=== PATIENT | male | born 1935 | race Caucasian/White ===

== ENCOUNTER 2017-01-07 08:46 | Day surgery (SDC) | payer MEDICARE, OTHER ==
[~2017-01-07] VITALS: Ht 170.2 cm; Wt 95.6 kg
[2017-01-07] VITALS (8 sets, daily range): BP systolic 112–169; BP diastolic 62–93; PULSE 65–82; RESP 14–17; O2SAT 93–99
--- NOTE | 2017-01-07 07:26 | PCM.HPANE ---
Patient Data Surgeon Admitting Provider: Attending Provider:Lorenzo Barber MD Primary Care Physician:Dominique Alcantar MD Other Provider:Holger Nguyen Anesthesia Reason for Visit Bladder Neck Obstruction Ht/WT & BMI Height (Feet): 5 Height (Inches): 7 Weight (Kilograms): 99.79 Body Mass Index 34.00 Allergies Coded Allergies: No Known Drug Allergies (Verified Allergy, Unknown, 01/04/17) Past Anesthesia History Anesthesia History: Denies:: Anesthesia Reactions, Fam Anesthesia Reaction, Fam Malignant Hypertherm, Malignant Hyperthermia Diabetes History Hx Diabetes?: Yes Type of Diabetes: Type II Glycemic Control: Insulin & Oral Medication MRSA MRSA: No Medications Hypertension Medication: Yes (MICARDIS) Home Meds Incl Beta Samantha: Yes Reported Medications Aspirin 81 Mg Nxcvsi26 Mg PO DAILY Ref 0 01/07/17 Insulin Glargine (Lantus U100 Solostar Insulin Pen)100 Unit/1 Ml Insuln.pen35 Unit SUBQ HS #1 PENINJ Ref 0 01/04/17 Lovastatin 40 Mg Nfypuw52 Mg PO HS #30 TABLET Ref 0 01/04/17 Levothyroxine 50 Mcg Glmywo91 Mcg PO DAILY Ref 0 01/04/17 Telmisartan (Micardis)40 Mg Hqivpv17 Mg PO DAILY 01/04/17 Methenamine Hippurate (Hiprex)1 G Tablet1 G Po Bid 01/04/17 Glipizide 10 Mg Lgpjag73 Mg PO DAILY 30 Days 01/04/17 Metformin (Glucophage)1,000 Mg Tablet1,000 Mg PO BID Ref 0 01/04/17 Discontinued Reported Medications Gemfibrozil 600 Mg Qsnvou270 Mg PO BID #60 TABLET 01/04/17 [Lovestatin] No Conflict Check40 Mg PO HS 01/04/17 Telmisartan-Expunged Drug, Do Not Renew! (Micardis-Expunged Drug, Do Not Renew!) 40 Mg Xkrixw75 Mg PO HS 02/22/12 Metformin-Expunged Drug, Do Not Renew! 1,000 Mg Tablet1,000 Mg PO BID 02/22/12 Lovastatin-Expunged Drug, Do Not Renew! 40 Mg Yrvtxh29 Mg PO HS 02/22/12 Gemfibrozil-Expunged Drug, Do Not Renew! (Lopid-Expunged Drug, Do Not Renew!) 600 Mg Ogsode837 Mg PO BID 02/22/12 glipiZIDE-Expunged Drug, Do Not Renew! (glipiZIDE XL-Expunged Drug, Do Not Renew !)10 Mg/Bottle Tab.osm.2410 Mg PO DAILY 02/22/12 History History of ENT Problems?: Yes HEENT History: Positive for:: Hearing Problem Other HEENT Pertinent History: S/P TONSILLECTOMY Hx of Heart Problems?: Yes Cardiovascular History: Positive for:: Hypertension (HYPERLIPIDEMIA) Denies:: Heart Murmur Hx of Respiratory Problem?: No Respiratory History: Denies:: Use of C-PAP Machine Hx Neurologic Problems?: Yes Hx of GI Problems?: Yes Gastrointestinal History: Positive for:: Heartburn (rarely) Hx of Problems?: Yes Genitourinary History: Positive for:: Urinary Tract Infection (HX OF RECURRENT ,RADIATION CYSTITIS) Other Pertinent History: 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 Pressure Ulcers Hx Musculoskeletal Problems?: Yes Musculoskeletal History: Positive for:: Degenerative Joint Hx of Psycho/Social Problems?: No Hx Surgeries?: Yes (RRP W/ PLND,TURBNC X2,TONSILLECTOMY,TURBT) Hx Any Other Health Problems?: Yes Other History: Positive for:: Cancer (prostate,BLADDER) Thyroid Disease Denies:: Endocrine Disease Hospitalization History Blood Transfusions: Denies:: Blood Transfusions Hx Diabetes: Yes Hx Alcohol Use: YesHx Substance Use: NoHave You Smoked inLast 12 mo: No Stop/Bang S-Snoring: Do You Snore Loudly: No T-Tired: feel tired, fatigued: Yes O-Obsered: Observed not breath: No P-Blood Pressure: treated: Yes B- Body Mass Index > 35 kg/m2: No A- Age over 50: Yes N- Neck Large Circumference: No G- Gender Male: Yes MICHEAL Total Score: 4 Risk Assessment Category Category 1A: Patient has history of documented sleep apnea, and HAS NOT received any narcotic, sedative or anesthesia administration during this stay. Category 1B: Patient has history of documented sleep apnea, and HAS received any narcotic , sedative or anesthesia administration during this stay Category 2: Patient has SUSPECTED Obstructive Sleep Apnea, and HAS received any narcotic , sedative or anesthesia administration during this stay. Category 3: Patient has SUSPECTED Obstructive Sleep Apnea and HAS NOT received narcotic, sedative or anesthesia administration during this stay. Category 4: Outpatient in Procedural Areas with known sleep apnea or who screen positive for High Risk via the STOP/BANG questionnaire. Exam Exam General Appearance: Alert, Oriented X3, Cooperative, No Acute Distress HEENT/AIRWAY: MP 1, Other (large ferrera) Lungs: Normal Air Movement Heart: Exam Unremarkable, Regular Rate/Rhythm Plan Impression Patient chart reviewed, patient interviewed and anesthestic plan with risks, benefits, and alternatives discussed, and informed consent obtained. NPO Status: black coffee at 0730 TeresoRuth Ann DO Jan 07, 2017 07:26
[~2017-01-07 08:46] MED LIST: Acetaminophen IV 1,000 mg IV ONE; CeFAZolin Inj 2 GM in IV Premix 1 EACH IV ONE; GEMF600T3 PO; GLIP10TA10 PO; INSU100I13 SUBQ; LEVO50TA6 PO; LOVA40TA PO; Lactated Ringer's 1,000 ML IV ONE; METF1000 PO; METH1TAB PO; TELM40TA PO
[2017-01-07] MEDS ORDERED: fentaNYL-PF 50 mCg/mL 2 mL Inj ONE (08:47)
[2017-01-07] MEDS ORDERED: Ondansetron 2 mg/mL 2 mL Inj ONE (08:47)
[2017-01-07] MEDS ORDERED: Lidocaine PF 1% 30 mL Inj ONE (08:47)
[2017-01-07] MEDS ORDERED: Phenylephrine/NS 100 mCg/mL 10 mL Syringe IVPUSH ONE (08:47)
[2017-01-07] MEDS ORDERED: ASPI-973 PO (09:36)
[2017-01-07] MEDS ORDERED: Lactated Ringer's 500 ML IV PRN (10:29)
[2017-01-07] MEDS ORDERED: Lactated Ringer's 1,000 ML IV SCH (10:29)
[2017-01-07] MEDS ORDERED: EPHEDrine Sulfate 50 mg/mL Inj IVPUSH PRN (10:30)
[2017-01-07] MEDS ORDERED: MetoCLOpramide 5 mg/mL 2 mL Inj IVPUSH PRN (10:30)
[2017-01-07] MEDS ORDERED: fentaNYL-PF 50 mCg/mL 2 mL Inj IVPUSH PRN (10:30)
[2017-01-07] MEDS ORDERED: Phenylephrine 10,000 mCg/mL Inj IVPUSH PRN (10:30)
[2017-01-07] MEDS ORDERED: HYDROmorphone 1 mg/mL Inj IVPUSH PRN (10:30)
[2017-01-07] MEDS ORDERED: Ondansetron 2 mg/mL 2 mL Inj IVPUSH PRN (10:30)
[2017-01-07] MEDS ORDERED: Belladonna Alk-Opium 60 mg Rectal Suppository RECTAL ONE ×2 (10:59→11:16)
--- NOTE | 2017-01-07 13:06 | PCM.ANEP1 ---
Post Anesthesia Phase 1 PACU Phase 1 Assessment Vital Signs Vital Signs Date Time Temp Pulse Resp B/P Pulse Ox O2 Delivery O2 Flow Rate FiO2 01/07/17 12:02 36.1 68 16 136/65 98 Room Air 01/07/17 11:55 36.2 70 17 126/76 93 Room Air 01/07/17 11:45 69 14 113/93 95 Room Air 01/07/17 11:40 36.4 70 16 112/74 96 Room Air 01/07/17 11:35 66 16 114/68 99 Simple Mask 8 01/07/17 11:30 65 14 126/68 98 Simple Mask 8 01/07/17 11:25 36.9 65 14 121/62 98 Simple Mask 8 01/07/17 09:13 36 82 16 169/76 96 Room Air Anesthetic Administered: GA Level of Alertness: Sleeping, hard to arouse GAYLE's with Equal Strength: Yes Pain: No Nausea or Vomiting: No Airway Device: Oralpharangeal Airway Oxygen Delivery: Simple Mask Lungs: Normal Air Movement Ruth Ann Rider DO Jan 07, 2017 13:06
--- NOTE | 2017-01-07 13:06 | PCM.ANEP2 ---
Post Anesthesia Evaluation ASA/CMS Post Anesthesia VS in Patient's Normal Range?: Yes Resp Stable; Airway Patent?: Yes CV Function & Hydration Stable: Yes Mental Status Recovered?: Yes Pain control Satisfactory?: Yes N/V Control Satisfactory?: Yes Ruth Ann Rider DO Jan 07, 2017 13:06
--- NOTE | 2017-01-09 02:57 | OP ---
[address] [address] OPERATIVE REPORT PATIENT: TOSHA GILLESPIE : 1935 MR#: [id number] ADMIT: 01/07/2017 JOB ID: [id number] DATE OF SURGERY: PREOPERATIVE DIAGNOSIS(ES): Bladder neck contracture. POSTOPERATIVE DIAGNOSIS(ES): Bladder neck contracture. OPERATION PERFORMED: Anterior incision and resection of bladder neck contracture. SURGEON: Lorenzo Barber MD. ANESTHESIOLOGIST: Ruth Ann Rider DO. ANESTHESIA: General. FINDINGS: Urethra normal. External sphincter appeared to be intact, but this was continuous with a long segment of very dense obstruction with extremely difficult access into the bladder lumen proper. The bladder itself demonstrated mild erythema throughout but no stone or . PROCEDURE SUMMARY: The patient was positioned supine, was administered general and anesthetic. He was then repositioned in semi-lithotomy, and the lower abdomen, genitalia and groin were prepped and draped in sterile fashion. The 25-Wallisian panendoscope was then passed in the lower urinary tract, with the findings as described above. was not at the bladder neck. Using the button cautery element, we carefully advanced through a very small aperture and meticulously used to correctly equate aperture for access into the bladder. Once this was achieved, the scope was advanced into bladder proper. Inspection revealed the findings as described above. The scope was then repositioned just below the bladder neck and using the button cautery resection was then procured mainly in the anterior aspect and then wide . Preliminary inspection was undertaken posteriorly right and left lateral, and anterior and posterior were then undertaken with find at least some of the fixation of the pelvic floor radiation therapy with some success. Two small tissue samples were obtained and these were collected and sent to pathology for microscopic examination. Hemostasis was excellent. The bladder was then left partially filled and a 20-Wallisian silicone catheter was then inserted with guide. The balloon was inflated to 10 cc and placed to gravity
--- NOTE | 2017-01-11 10:08 | PATH ---
SURGICAL PATHOLOGY Attending Physician:Lorenzo Barber MD CASE STATUS: Signed Out PATIENT NAME: TOSHA GILLESPIE PID: [id number] : 1935 DATE COLLECTED:01/07/2017 20:18 SPECIMEN: Bladder Neck CLINICAL HISTORY: BLADDER NECK CONTRACTARE 1). RESECTED BLADDER NECK FINAL DIAGNOSIS: 1.SPECIMEN DESIGNATED RESECTED BLADDER NECK: ACUTE AND CHRONIC INFLAMMATION WITH TISSUE NECROSIS INVOLVING FIBROMUSCULAR TISSUE AND SQUAMOUS EPITHELIUM. NO DEFINITE UROTHELIUM IDENTIFIED. NEGATIVE FOR MALIGNANCY AND SIGNIFICANT ATYPIA. ICD10 CODE N32.0 GROSS DESCRIPTION: The specimen is received in one formalin filled container labeled with the patient's name, sublabeled "resected bladder neck" and consists of multiple portions of tissue which aggregate to 1.5 x 0.6 x 0.3 CM. The specimen is filtered and entirely submitted one cassette. 01/07/2017 DAC MICRO DESCRIPTION: See diagnosis. ICD-9 CODES: CPT CODES: 1: 62680 Electronically Signed Out Mauricio Wheat MD [facility] [address], [place] [address] Technical component performed at [facility], [address] [place] [address] Ave[address], [place], [address]
== END 2017-01-07 23:59 | disposition home or self-care (01) ==
LOC: SAS 08:46
PROVIDERS: ATTEND Specialist
DX: N32.0 Bladder-neck obstruction (principal); N30.00 Acute cystitis without hematuria; N30.20 Other chronic cystitis without hematuria; E11.9 Type 2 diabetes mellitus without complications; Z79.4 Long term (current) use of insulin; Z79.84 Long term (current) use of oral hypoglycemic drugs; I10 Essential (primary) hypertension; Z85.46 Personal history of malignant neoplasm of prostate; Z85.51 Personal history of malignant neoplasm of bladder
CPT/HCPCS: 52500; 88305; J0131; J0690; J2370; J2405; J3010; J7120

== ENCOUNTER 2017-03-06 15:59 | Inpatient (IN) | payer MEDICARE, OTHER ==
[~2017-03-06] VITALS: Ht 165.1 cm; Wt 93.4 kg
[~2017-03-06 15:59] MED LIST changes: +ASPI-973 PO; -Acetaminophen IV 1,000 mg IV ONE; -CeFAZolin Inj 2 GM in IV Premix 1 EACH IV ONE; -GEMF600T3 PO; -Lactated Ringer's 1,000 ML IV ONE
[2017-03-06 16:12] VITALS: BP 112/55; PULSE 85; RESP 14; O2SAT 95
[2017-03-06] MEDS ORDERED: 0.9% Sodium Chloride 1,000 ML IV ONE (16:46)
[2017-03-06 17:14] LABS: BASOPHILS % (AUTO) 0.2 % (0-3); EOSINOPHILS % (AUTO) 3.6 % (0-5); MONOCYTES % (AUTO) 9.6 % (4-12); Mean Corpuscular Hemoglobin 28.7 pg (27.0-35.0); Mean Corpuscular Volume 92.2 fL (81-100); NEUTROPHILS % (AUTO) 75.1 % (40-74); Platelet Count 283 bil/L (150-400)
--- NOTE | 2017-03-06 17:28 | DRSVH ---
PROCEDURE: X-RAY CHEST ONE VIEW, PORTABLE ([id number]) INDICATIONS: hypoglycemic TECHNIQUE: One view of the chest was acquired. COMPARISON: None. FINDINGS: Surgical changes and devices: None. Lungs and pleura: No pleural effusions or pneumothorax. Lungs are clear. Mediastinum: Mediastinal contours appear normal. Heart size is normal. Bones and chest wall: No suspicious bony lesions. Overlying soft tissues appear unremarkable. IMPRESSION: No acute pulmonary process. Dictated by: Bridget Sandoval M.D. on 03/06/2017 at 17:26 Approved by: Bridget Sandoval M.D. on 03/06/2017 at 17:26
[2017-03-06 17:35] LABS: TROPONIN T < 0.010 ug/L (0.0-0.011)
[2017-03-06 17:45] LABS: Magnesium 1.8 mg/dL (1.6-2.6)
--- NOTE | 2017-03-06 17:56 | ED.REPORT ---
HPI-General Illness Date of Service Mar 06, 2017 ED Provider: Mauricio Domingo MD A 81 year old male with a history of Diabetes Melitis, recurrent UTI (self cath) , chronic pain and prostate cancer,s/p prostatectomy, presents to the ED referred from his PCP with a low blood glucose for 1 wk, levels ranging between 30-40. Patient denies any known reason for change in BGL, was started on Gabapentin around onset of the pain. The patient has called his doctor and told to reduce his Lantus from 40mg to 20 mg last week. The patient has been experiencing general pain for the last 2.5-3 weeks. He reports severe back pain with radiation down his legs that he describes as an "electrical" sensation. An MRI was taken on Jan 07 - see MDM. Associates symptoms include chills, shaking, fatigue, dizziness, decreased appetite (possibly attributed to decreased BGL), vomiting (resolved), chronic cough, and constipation ( attributed to daily oxycodone). He also states that he has been unable to walk without assistance which is new. Prior to arrival the patient had some relief after receiving crackers and juice. Jan 07 had a opening of bladder stricture. Nursing Notes Stated Complaint: BACK PAIN,LOW BLOOD PRESSURE Chief Complaint: General Complaint Nursing Notes Reviewed: Yes Allergies: Coded Allergies: No Known Drug Allergies (Verified Allergy, Unknown, 01/04/17) Scheduled Cyanocobalamin (Cyanocobalamin Injection) 1,000 Mcg/1 Ml Vial 1,000 MCG IM Monthly Gabapentin (Gabapentin) 300 Mg Capsule 300 MG PO BID Glipizide (Glipizide) 10 Mg Tablet 10 MG PO BIDWM Levothyroxine (Levothyroxine) 50 Mcg Tablet 50 MCG PO HS Metformin (Glucophage) 1,000 Mg Tablet 1,000 MG PO BIDWM Methenamine Hippurate (Hiprex) 1 G Tablet 1 G PO BID Telmisartan (Micardis) 40 Mg Tablet 40 MG PO HS Scheduled PRN Diclofenac Gel (Diclofenac Gel) 100 Gm Tube 1 APPLIC TOPICAL QID PRN PRN ARTHRITIS oxyCODONE (oxyCODONE) 5 Mg Tablet 5 MG PO Q4H PRN PRN For Pain General Time Seen by MD: 16:44 Chief Complaint Back pain Low blood glucose. Hx Obtained From: Patient, Spouse Arrived By: Walk-in Onset Occurred: More than a week ago... (2 weeks) Symptom Duration: Since onset Quality: Painful Severity: Maximum: Severe Past Medical History Past Medical History Prostate cancer, recurrent UTI, chronic pain. Reports: Diabetes mellitus, Hyperlipidemia Past Surgical History RRP W/ PLND,TURBNC X2,TONSILLECTOMY,TURBT Reports: Prostatectomy (2005) Smoking History Never Smoker Social History Alcohol Use: "Social" Review of Systems Full Review of Systems Constitutional: Reports: Chills, Fatigue GI: Reports: Constipation, Vomiting Musculoskeletal: Reports: Back pain Neurologic: Reports: Dizziness, Shaking Complete sys rev & neg: except as marked. Physical Exam Vital Signs Vital Signs Date Time Temp Pulse Resp B/P Pulse Ox O2 Delivery O2 Flow Rate FiO2 03/06/17 21:00 83 16 127/55 95 Room Air 03/06/17 20:51 83 16 127/55 95 Room Air 03/06/17 18:41 77 16 132/85 96 Room Air 03/06/17 16:12 36.4 85 14 112/55 95 Room Air Initial VS: Reviewed Head / Eyes: Atraumatic, Normocephalic ENT: Mucous membranes moist (Dentition intact), Conjunctiva normal, No scleral icterus Neck: Supple, Non-tender, Full range of motion Respiratory: Breath sounds normal, Clear to auscultation (Anteriorly), No respiratory distress Cardiovascular: Regular rate & rhythm, Heart sounds normal (No MRG), Intact distal pulses Lymphatic: No lymphadenopathy (Within the cervical region) General/Constitutional: Awake, Alert, Well developed 36.7 C per MD Respiratory / Chest: Breath sounds NL, No respiratory distress, No rales, No rhonchi, No wheezing Cardiovascular: Heart rate NL, Regular rhythm, Heart sounds NL, Cap refill not delayed, Peripheral circulation NL Abdomen: Soft, Non-tender, No guarding, No rebound, BS normoactive Skin: Warm, Dry skin breakdown, full-thinkness of the sacrum and L buttocks Neurologic: Oriented X3, Speech NL, No sensory deficits Motor EHL reflexes 5/5 Interpretation & Diagnostics Lab Results Interpretation Result Diagram: 03/06/17 1700 03/06/17 1700 Test 03/06/17 17:00 03/06/17 20:21 White Blood Count 9.3th/mm3 (3.8-10.1) Red Blood Count 3.87mil/mm3 (4.40-5.80) Hemoglobin 11.1g/dL (13.8-17.2) Hematocrit 35.7% (41.0-50.0) Mean Corpuscular Volume 92.2fL (81-100) Mean Corpuscular Hemoglobin 28.7pg (27.0-35.0) Mean Corpuscular Hemoglobin Concent 31.1% (32.0-37.0) Red Cell Distribution Width 14.8% (12.3-15.4) Platelet Count 283bil/L (150-400) Neutrophils (%) (Auto) 75.1% (40-74) Lymphocytes (%) (Auto) 11.4% (14-46) Monocytes (%) (Auto) 9.6% (4-12) Eosinophils (%) (Auto) 3.6% (0-5) Basophils (%) (Auto) 0.2% (0-3) Sodium Level 133mEq/L (134-144) Potassium Level 6.3mEq/L (3.5-5.2) Chloride Level 104mEq/L (97-108) Carbon Dioxide Level 14mmol/L (18-29) Blood Urea Nitrogen 59mg/dL (8-27) Creatinine 1.98mg/dL (0.76-1.27) Estimat Glomerular Filtration Rate 35mL/min (>59) Glucose Level 155mg/dL (60-99) Calcium Level 9.7mg/dL (8.5-10.1) Magnesium Level 1.8mg/dL (1.6-2.6) Total Bilirubin 0.2mg/dL (0.0-1.2) Aspartate Amino Transf (AST/SGOT) 15U/L (0-50) Alanine Aminotransferase (ALT/SGPT) 19U/L (0-44) Alkaline Phosphatase 69U/L (25-160) Troponin T < 0.010ug/L (0.0-0.011) Total Protein 7.5g/dL (6.4-8.4) Albumin 3.2g/dL (3.4-5.0) Hold Vera Top Tube Received (Received) Urine Color Straw (YELLOW) Urine Appearance Cloudy (CLEAR,HAZY) Urine pH 6.0 (5.0-8.0) Urine Specific [place] 1.020 (1.003-1.035) Urine Protein 100mg/dL (NEG,TRACE) Urine Glucose (UA) Negativemg/dL (NEGATIVE) Urine Ketones Negativemg/dL (NEGATIVE) Urine Occult Blood Large (NEGATIVE) Urine Nitrite Negative (NEGATIVE) Urine Bilirubin Negative (NEGATIVE) Urine Urobilinogen Normalmg/dL (NORMAL) Urine Leukocyte Esterase Large (NEGATIVE) Urine RBC 11-50/hpf (0-2) Urine WBC Packed/hpf (0-5) Urine Epithelial Cells Few/hpf (NONE-MOD) Urine Crystals None seen (NONE SEEN) Urine Bacteria Few/hpf (NONE-FEW) Urine Hyaline Casts None/lpf (NONE) Urine Granular Casts None seen (NONE SEEN) Urine Waxy Casts None seen (NONE SEEN) Urine Red Blood Cell Casts None seen (NONE SEEN) Urine White Blood Cell Casts None seen (NONE SEEN) Urine Mucus None seen (None Seen) Urine Trichomonas None seen (NONE SEEN) Urine Yeast None (NONE SEEN) Urine Culture Reflexed Indicated General Lab Results Interp 1: Labs reviewed ECG Interpretation ECG Interpretation: No peaked T-waves Time: 17:04 Interpreted by: ED physician Normal ECG Interpretation: Normal rate (78), Normal sinus rhythm X-Ray Chest Interpretation Chest Xray Interpretation: IMPRESSION: No acute pulmonary process. Dictated by: Bridget Sandoval M.D. on 03/06/2017 at 17:26 Approved by: Bridget Sandoval M.D. on 03/06/2017 at 17:26 View: Portable, 1 view Interpretation / Wet Read by: Interpret - Radiologist Re-Eval/Medical Decision Med Decision/Clinical Course Progressive generalized weakness and back pain. UTI and hyperkalemia without ECG changes noted. Also has sacral decubiti. Hemodynamically stable. IV fluids, kayexalate and rocephin given. Admit to hospitalist. Code status- FULL CODE per pt Source of Hx: Old records Summary of Info: MRI Taken 01/23/2017 IMPRESSION: 1. 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 2. Mild canal stenosis at L4-5 and L5-S1 secondary to disc bulges and facet and ligamentum flavum hypertrophy. 3. Moderate right foraminal narrowing at L5-S1. No other significant foraminal stenosis the lumbar spine. Dictated by: Mattie Haney M.D. on 01/23/2017 at 16:04 Approved by: Mattie Haney M.D. on 01/23/2017 at 16:12 Time of Eval: 19:54 Re-Evaluation/Progress Note: Pt resting in bed. Updated of abnormal labs. The patient understands and agrees with the plan for admission. All questions have been answered. Time of Eval: 21:20 Re-Evaluation/Progress Note: Discussed code status with patient in the presence of his . Patient is full code? Consultation : Referral / Consult Name: Eliud Chaney MD Consulted With: Hospitalist Call Returned at: 20:34 Power Plant Mechanic: Will see patient, Agrees with plan, Accepts admit Counseled Regarding: Diagnosis, Lab results, Need for admission Discharge & Departure Primary Impression: Hyperkalemia Additional Impressions: UTI (urinary tract infection) Urinary tract infection type: catheter-associated UTI Indwelling urinary catheter type: unspecified Encounter type: initial encounter Qualified Code : T83.511A - Infection and inflammatory reaction due to indwelling urethral catheter, initial encounter Generalized weakness Disposition: ADMITTED TO HOSPITAL Discharge Condition All VS Reviewed: Yes Referrals: Dominique Alcantar MD (PCP) Deborah Attestation Portions of this note were transcribed by Tobias Andres and . I, Dr. Domingo personally performed the history, physical exam and medical decision-making; I reviewed and confirmed the accuracy of the information in the transcribed note. Signed by: Tobias Andres and Deborah Chavez, 03/03/2017 and 2050. copies to: Dominique Alcantar MD, Donald L MD Mar 06, 2017 17:55 Tobias Andres Mar 06, 2017 18:00 Chitra Landaverde Mar 06, 2017 20:33
[2017-03-06 18:41] VITALS: BP 132/85; PULSE 77; RESP 16; O2SAT 96
[2017-03-06] MEDS ORDERED: HYDROcodone-APAP 5-325 mg Tablet PO ONE (18:55)
[2017-03-06 20:37] LABS: APPEARANCE,URINE CLOUDY (CLEAR,HAZY); COLOR,URINE STRAW (YELLOW); OCCULT BLOOD,URINE LARGE (NEGATIVE); UROBILINOGEN,URINE NORMAL (NORMAL)
[2017-03-06 20:51] VITALS: BP 127/55; PULSE 83; RESP 16; O2SAT 95
[2017-03-06] MEDS: HYDROmorphone 0.5 mg/0.5 mL iSecure Syringe IVPUSH PRN ×2 (20:51→22:05)
[2017-03-06 21:00] VITALS: BP 127/55; PULSE 83; RESP 16; O2SAT 95
[2017-03-06] MEDS ORDERED: GABA-502 PO (21:02)
[2017-03-06] MEDS ORDERED: OXYC5TAB72 PO (21:02)
[2017-03-06] MEDS ORDERED: LIDO700A33 TOPICAL (21:02)
[2017-03-06] MEDS ORDERED: cefTRIAXone Inj 2,000 MG in Dextrose 5% Minibag Plus 50 ML IV ONE (21:05)
[2017-03-06] MEDS ORDERED: Polyethylene Glycol (PEG) 17 Gm Powder PO PRN ×2 (21:35→22:05)
[2017-03-06] MEDS ORDERED: Alum-Mag Hydrox-Simeth 30 mL Suspension PO PRN ×2 (21:35→22:05)
[2017-03-06] MEDS ORDERED: Ondansetron 2 mg/mL 2 mL Inj IVPUSH PRN ×2 (21:35→22:05)
--- NOTE | 2017-03-06 21:51 | PCM.HPMED ---
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 Barber. Pt presented to the [facility] by referral from his PCP Dr. Laguerre today secondary to 1 week hx of low BG's. Patient reports his BG levels were between 30-40 yesterday. Patient stated he had placed it call to his primary care physician requesting to do go down on his Lantus from 40 units to 20 units daily. Today patient states that his Lantus was stopped by his PCP. The patient states that his appetite is severely decreased over the past 2-3 weeks to the point where food and drink are not appealing to him. Patient has however remained compliant with his oral anti-glycemic and Lantus over that time period. He attributes his loss of appetite to his severe chronic back pain The patient has also been experiencing general pain for the last 2.5-3 weeks. He reports severe back pain described as both sharp and achy and 8-10/10 with radiation down the medial aspects of lower extremities. Patient describes the pain as "electrical shocks" . An MRI dated 01/23/2017 showed mild multilevel degenerative disc disease, and mild canal stenosis of L4 through S1 secondary to facet and ligamentum flavum hypertrophy. Associates symptoms include chills, shaking, fatigue, dizziness, decreased appetite, vomiting (resolved), and constipation ( attributed to daily oxycodone). Patient is now wheelchair-bound and he states that he is unable to ambulate without assistance. This is a new finding for him. Patient describes pressure ulcers on his buttock. Patient was admitted to [facility] at request of patient's PCP Dr. Laguerre. Per Dr. Laguerre's note patient has been experiencing glycemia over the past 4 days and is severely symptomatic. Patient apparently had not even taken any insulin last night and was still low today. Patient has not been able to get out of bed for 4 days. He has severe leg pain and the PCP is concerned for an underlying overwhelming infection. Apparently his initial presentation was of such concern that 911 was called and patient was given orange juice and P repair with crackers with improvement. His PCP is very concerned over patient lack of being able to get out of bed for 4 days, his new sacral ulcers and, his inability to eat. Patient is to see Dr. Calderon rheumatology in 1 week. Patient is currently status post sacrococcygeal injections for pain with temporary relief. In ED patient was started on ceftriaxone 2000 mg once He received a 1 L bolus of normal saline. He received 15 gm of Kayexalate for his hyperkalemia. IV Dilaudid 0.5 mg once. Critical WBCs 9.3, 75.1% PMNs, Hemoglobin 11.1 hematocrit 35.7, platelet count 283 Chemistry panel: Sodium 133, potassium 6.3, chloride 104, CO2 14, BUN 59, creatinine 1.98 , baseline creatinine 1.98, glucose 155, troponin 0.010 UA showed: Urine color was straw cloudy, pH 6, large occult blood, large leukocyte esterase, 11-50 RBCs, WBCs packed, few bacteria Vital signs: Temperature 36.4, pulse 85, respiratory rate 16, blood pressure 127 with a map of 79, 95% on room air. Chest x-ray was negative for acute cardiopulmonary process EKG showed: Normal sinus rhythm with a rate of 78, Normal axis, no ST or T-wave changes, no peaked T waves, Q wave in lead 3 and aVR Review of Systems: A comprehensive review of systems was conducted and was negative except as mentioned in history of present illness. Allergies Coded Allergies: No Known Drug Allergies (Verified Allergy, Unknown, 01/04/17) Home Medications Gabapentin (Gabapentin) 300 Mg Capsule 300 MG PO BID Glipizide (Glipizide) 10 Mg Tablet 10 MG PO BID Currently stopped Insulin Glargine (Lantus U100 Solostar Insulin Pen) 100 Unit/ 1 Ml Insuln.pen 40 UNIT SUBQ HS Levothyroxine (Levothyroxine) 50 Mcg Tablet 50 MCG PO HS Metformin (Glucophage) 1,000 Mg Tablet 1,000 MG PO BID Methenamine Hippurate (Hiprex) 1 G Tablet 1 G takes 0.5 tablets PO BID Telmisartan (Micardis) 40 Mg Tablet 40 MG PO HS PRN Lidocaine (Lidocaine) 700 Mg Adh..patch 1 PATCH TOPICAL DAILY PRN PRN For Pain oxyCODONE (oxyCODONE) 5 Mg Tablet 5 MG PO Q4H PRN PRN For Pain Docusate 100 mg daily when necessary vitamin D 2000 units daily PMH Prostate cancer, recurrent UTI, chronic pain. 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 Surgical History Bladder neck surgery by Dr. Barber in 2011 and December 2016 Prostatectomy (2006) Tonsillectomy Family History Family history significant for hypertension Father with skin cancer prostate cancer, coronary artery disease Brother with history of coronary artery disease, Social History Hx Alcohol Use: Yes Hx Substance Use: No Smoking Status: Never Smoker Exam Vital Signs Vital Sign - Last Date Time Temp Pulse Resp B/P Pulse Ox O2 Delivery O2 Flow Rate FiO2 03/06/17 21:00 83 16 127/55 95 Room Air 03/06/17 16:12 36.4 Exam General: Patient is alert and oriented 3, in moderate distress secondary to his chronic back pain, speaking in full sentences, lying flat in bed. HEENT: NC/AT, eyes, skin of face with rosacea, pupils somewhat pinpoint otherwise PERRLA, EOMI, neck, soft supple, no adenopathy, no JVD, no masses, no thyromegaly, throat mucous membranes pink and dry, no erythema, no exudates. Lungs: CTAB all nagy, no wheezes, no rhonchi, no crackles, no adventitious lung sounds, no use of accessory muscles of respiration, good air movement, good respiratory effort. Heart: Regular rate and rhythm, no murmur, S1-S2 present, no rub, no click, no distant heart sounds, Abdomen: Protuberant, tympanic to percussion, soft, tender in the right upper quadrant to palpation, bowel sounds active, no rebound Genitourinary: No CVA tenderness, no suprapubic tenderness, no Oliva catheter, rash on medial right upper extremity groin consistent with Alondra Extremities: Muscle strength testing difficult given level of patient's chronic back pain, pulses equal and symmetric upper/lower extremity including radial and dorsalis pedis, no edema Neurologic: Grossly neurologically intact Skin: Buttock with early skin breakdown and erythema, rash medial right groin area, rosacea Psychiatric: Mood affect are congruent and appropriate. Lab and Diagnostics Result Diagram: 03/06/17 1700 03/06/17 1700 X-Rays, CTs and MRIs Date of Service: 03/06/17 1646 PROCEDURE: X-RAY CHEST ONE VIEW, PORTABLE INDICATIONS: hypoglycemic TECHNIQUE: One view of the chest was acquired. COMPARISON: None. FINDINGS: Surgical changes and devices: None. Lungs and pleura: No pleural effusions or pneumothorax. Lungs are clear. Mediastinum: Mediastinal contours appear normal. Heart size is normal. Bones and chest wall: No suspicious bony lesions. Overlying soft tissues appear unremarkable. IMPRESSION: No acute pulmonary process. Dictated by: Bridget Sandoval M.D. on 03/06/2017 at 17:26 Approved by: Bridget Sandoval M.D. on 03/06/2017 at 17:26 Assessment & Plan This is an 81-year-old male with history diabetes type II, hypertension, hyperlipidemia, chronic back pain, prostate cancer status post prostatectomy and radiation therapy with bladder neck constriction status post bladder neck surgery with most recent in December 2016 requiring self-catheterization and history of recurrent UTIs who presented to [facility] with 1 week history of hypoglycemia secondary to decreased appetite over the past 2-3 weeks and severe lumbar back pain. Patient was admitted at his PCPs request and for hypoglycemia and urinary tract infection, and hyperkalemia. # UTI, present on admission, active - Vital signs: Temperature 36.4, pulse 85, respiratory rate 16, blood pressure 127 with a map of 79, 95% on room air. - She has history of recurrent UTIs contrary to bladder neck stricture and requires self-catheterization. - UA showed: Urine color was straw cloudy, pH 6, large occult blood, large leukocyte esterase, 11-50 RBCs, WBCs packed, few bacteria - And culture ordered and pending - We will continue ceftriaxone 2000 mg every 24 hours - Chest x-ray was negative for acute cardiopulmonary process - We will hold medication methenamine hippurate # Hypoglycemia, and a known type II diabetic present on admission - Patient has had blood glucoses in the 30s to 40s range over the past week - His Lantus 40 units daily at bedtime was decreased to 20 units daily at bedtime and then stopped by his PCP - Patient states for the past 3 weeks he has no desire to eat or drink secondary to extreme chronic pain. Attributes his low glucose blood glucose levels to his decreased by mouth intake. - He should also states that he has remained compliant on his insulin regimen despite decreased by mouth intake over this time period. - Dietitian consult ordered - structural layout worker consult ordered - We will start low-dose correctional scale insulin - We will hold metformin and glipizide # Right upper quadrant tenderness, as seen on physical exam - Abdominal ultrasound # Anemia, normocytic hypochromic, present on admission, active - Patient has history of chronic anemia - We will guaiac stool #Hyperkalemia, present on admission, active - Potassium 6.3 - Patient received single dose of Kayexalate in the ED - We will start albuterol treatment - We will hold off on insulin and glucose in patients hypoglycemia on admission - We will recheck potassium #Chronic kidney disease, present on admission, active - Patient records from December 2015 showed creatinine of 1.98 - Patient's creatinine currently is 1.98 - We will start normal saline at 125 hour # Dehydration, present on admission, active - He said mucous membranes appear dry - IV fluids as previously stated Hyponatremia, present on admission, active - Mild with sodium of 133 - Normal saline as above # Chronic back pain, - We will continue by mouth oxycodone 5 mg every 4 hours when necessary - Physical therapy consult to evaluate for possible SNF - We will continue gabapentin 3 mg twice a day # Sacral skin breakdown, present on admission, active - We will consult wound care # Skin rash groin, present on admission, active - Nystatin powder Prostate cancer, recurrent UTI, chronic pain. 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 CODE STATUS: Full code PCP: Dominique Laguerre DVT PE prophylaxis: SubQ heparin Q8H Contact: Patient's [phone] [place] Pain Evaluation: Pain not Controlled VTE Prophylaxis: Sub-Q Heparin (Unfractionated) Resuscitation Status: CPR: Attempt Resuscitation Attending Statement The patient was seen and examined together with Dr. Carroll on 03/06 and I agree with the history, exam and plan as outlined in the note above. copies to: Dominique Alcantar MD, Benjamin DO Mar 06, 2017 21:51 Eliud Chaney MD Mar 07, 2017 02:18
[2017-03-06] MEDS ORDERED: CYA1000I IM (22:03)
[2017-03-06] MEDS ORDERED: DICL100G26 TOPICAL (22:03)
[2017-03-06] MEDS ORDERED: Albuterol 2.5 mg/3 mL Inhalation Solution NEB ONE (22:20)
[2017-03-06] MEDS: 0.9% Sodium Chloride 1,000 ML IV SCH (22:30)
[2017-03-06] MEDS: Heparin 5,000 Unit/mL Inj SUBQ SCH (22:30)
[2017-03-06 22:35] VITALS: BP 142/71; PULSE 78; RESP 18; O2SAT 96
--- NOTE | 2017-03-06 22:59 | NUR ---
NEW ADMIT Pt arrived from the ED via stretcher. Pt 2PA due to severe back pain. Pt A&Ox3, still in pain, received a dose of 0.5mg Dilaudid during assessment. Pt has noticeable skin breakdown to the sacrum area, no other skin issues noted. Pt self-cath's at home, UA sent down in the ED. Pt is pleasant and quite a jokester despite his chronic back pain.
[2017-03-07] VITALS (7 sets, daily range): BP systolic 141–160; BP diastolic 69–75; PULSE 78–84; RESP 18–20; O2SAT 96–98
[2017-03-07] MEDS ORDERED: Glucose 40% Oral Gel 15 Gm Tube PO PRN (00:05)
[2017-03-07] MEDS ORDERED: HYDROmorphone 0.5 mg/0.5 mL iSecure Syringe IVPUSH PRN (00:10)
[2017-03-07] MEDS: Nystatin 100,000 Unit/Gm 15 Gm Powder TOPICAL SCH ×3 (00:10→20:18)
[2017-03-07 03:16] LABS: BASOPHILS % (AUTO) 0.2 % (0-3); EOSINOPHILS % (AUTO) 4.6 % (0-5); Mean Corpuscular Hemoglobin 28.4 pg (27.0-35.0); Mean Corpuscular Volume 91.8 fL (81-100); NEUTROPHILS % (AUTO) 74.1 % (40-74); Platelet Count 272 bil/L (150-400)
[2017-03-07] MEDS: Heparin 5,000 Unit/mL Inj SUBQ SCH ×3 (06:42→20:19)
--- NOTE | 2017-03-07 07:07 | NUR ---
WEAKNESS Pt extremely weak in his lower extremities. Pt straight caths, but could not get any urine out while laying in bed, able to stand, but very weak and unsteady on feet. Pt high fall risk r/t to weakness from chronic back pain. Pt may need peoples placed and put on bedrest for safety. Pt did state not having a bowel movement in over 4 days. Pt did have a large solid BM towards end of shift.
[2017-03-07] MEDS: Insulin LISPRO 300 Unit/3 mL Inj SUBQ SCH ×4 (07:58→22:00)
[2017-03-07] MEDS: 0.9% Sodium Chloride 1,000 ML IV SCH ×2 (10:54→20:17)
--- NOTE | 2017-03-07 13:16 | NUR ---
Social Work- Initial Assessment Data: See Initial Assessment. Pt is a 81 year old male admitted for hyperkalemia, UTI, and generalized weakness per H&P. Wound Care is following. PT evaluation is on hold pending CT of spine. Pt's insurance is [employer]. Pt's PCP is Dominique Laguerre MD. RAFIA met with pt and Richelle [phone] regarding discharge plan, SW role explained. Pt was asleep during this conversation. Pt resides with his [place] prior to his back pain. Pt's back pain has increased over the last few weeks to the point where he is in a wheelchair and can barely ambulate, SBA transfers. Pt's assists with any ADLs needs that pt may have depending on his pain level. Pt has a cane, walker, wheelchair, and bath bench available for use. Pt does not drive. Pt has no HH or SNF history. Pt has LTC insurance through [employer]. Pt has no VA benefits. SW requested pt's [facility] [employer] [facility] for pt's chart. Pt's is NOK/decision maker. SW spoke with pt regarding potential SNF/HH needs. Provided choice list. Pt's choiced [facility] and [facility] if SNF or HH is recommended after pending PT evaluations. Pt's agreeable to potential recommendations. SW will follow up after therapy evaluation. Assessment: Pt who [place] independent [place]. Plan: PT evaluation pending. Pt's agreeable to potential SNF or HH recommendations, chose [facility] or [facility]. SW will follow up after therapy evaluation. TIAGO Marshall Addendum: 03/07/17 at 1328 by DESTIN CORDOVA Amended: Links added.
[2017-03-07] MEDS ORDERED: CRAN300T PO (13:19)
[2017-03-07] MEDS ORDERED: CHOL200047 PO (13:19)
[2017-03-07] MEDS ORDERED: DOCU-41 PO (13:19)
[2017-03-07] MEDS ORDERED: UBID300C PO (13:19)
[2017-03-07] MEDS ORDERED: MINE473O2 PO (13:19)
--- NOTE | 2017-03-07 13:24 | DRSVH ---
PROCEDURE: US ABDOMEN INDICATIONS: right upper quadrant pain TECHNIQUE: Real-time scanning was performed of the abdominal and retroperitoneal organs, with image documentatio n. COMPARISON: None. FINDINGS: Liver length: 17.71 cm Gallbladder Wall Thickness: 2.80 mm CHD: 3.80 mm CBD: 3.80 mm Right kidney length: 10.45 cm Left kidney length: 10.05 cm Aorta(Proximal): 1.62 cm Aorta(Distal): 1.27 cm Liver: Liver is diffusely increased in echogenicity. No focal hepatic abnormalities identified. No rmal hepatic size. Gallbladder: Normal gallbladder. Biliary ducts: Intrahepatic bile ducts are non-dilated. Extrahepatic bile duct caliber is normal. Normal is 6-7 mm or less in diameter, or 10 mm or less post-cholecystectomy. Pancreas: Visualized portions of the pancreas are sonographically normal. Spleen: Not visualized. Kidneys: Kidneys are normal in size and echotexture. No hydronephrosis or nephrolithiasis. No francis d masses. Aorta: Visualized aorta is normal in caliber at less than 3 cm. Iliacs: Proximal common iliac arteries are normal in caliber at less than 2.5 cm. IVC: Intrahepatic inferior vena cava is patent. Miscellaneous: No free abdominal fluid. IMPRESSION: 1. Increased hepatic echogenicity noted likely related to fatty infiltration of the liver but other s ources of hepatocellular disease cannot be excluded. Recommend clinical correlation. Dictated by: Jared Reyes [facility] Interpreted: Farnaz Wilkerson MD on 03/07/2017 at 13:21 Transcribed by: CARL on 03/07/2017 at 13:23 Approved by: Farnaz Wilkerson MD, PhD on 03/07/2017 at 16:44
--- NOTE | 2017-03-07 15:08 | PCM.PNMED ---
Subjective Date of Service Mar 07, 2017 Subjective Patient in mild distress due to severe sacral pain 07/04. Oliva cath placed. Patient is bed-ridden. Patient denies chest pain, shortness of breath. C/o mild nausea earlier. Patient's is by bedside. Exam Vital Signs Vital Sign - Last Date Time Temp Pulse Resp B/P Pulse Ox O2 Delivery O2 Flow Rate FiO2 03/07/17 12:48 36.2 78 20 160/75 96 Room Air Intake and Output 03/06/17 03/06/17 03/07/17 Cumulative From/Thru 15:00 23:00 07:00 03/06/17 16:12 - 03/07/17 06:41 Intake Total 1000 ml 545 ml 1545 ml Output Total 760 ml 760 ml Balance 1000 ml -215 ml 785 ml Intake IV Total 1000 ml 545 ml 1545 ml Output Urine Total 760 ml 760 ml # Bowel Movements 1 1 Exam General: Patient is alert and oriented 3, in moderate distress secondary to his chronic sacral/coccygeal pain, speaking in full sentences, lying flat in bed. HEENT: NC/AT, eyes, skin of face with rosacea, neck, soft supple, no adenopathy , throat mucous membranes pink and dry, no erythema, no exudates. Lungs: CTAB all nagy, no wheezes, no rhonchi, no crackles, no adventitious lung sounds, no use of accessory muscles of respiration, good air movement, good respiratory effort. Heart: Regular rate and rhythm, no murmur, S1-S2 present, no rub, no click, no distant heart sounds, Abdomen: Soft, tender in the right upper quadrant to palpation, bowel sounds active, no rebound Genitourinary: Oliva catheter, rash on medial right upper extremity groin consistent with Alondra Extremities: Pulses equal and symmetric upper/lower extremity including radial and dorsalis pedis, no edema Neurologic: Grossly neurologically intact Skin: Left buttock with early skin breakdown and erythema, rash medial right groin area, rosacea IVs and Medications IV Fluids Medications Home meds: Gabapentin (Gabapentin) 300 Mg Capsule 300 MG PO BID Glipizide (Glipizide) 10 Mg Tablet 10 MG PO BID Currently stopped Insulin Glargine (Lantus U100 Solostar Insulin Pen) 100 Unit/ 1 Ml Insuln.pen 40 UNIT SUBQ HS Levothyroxine (Levothyroxine) 50 Mcg Tablet 50 MCG PO HS Metformin (Glucophage) 1,000 Mg Tablet 1,000 MG PO BID Methenamine Hippurate (Hiprex) 1 G Tablet 1 G takes 0.5 tablets PO BID Telmisartan (Micardis) 40 Mg Tablet 40 MG PO HS Oxycodone 5 mg PO q4h PRN pain Lab and Diagnostics Result Diagram: 03/07/17 0255 03/07/17 1305 X-Rays, CTs and MRIs Caution: Report not yet finalized and possibly incomplete! US ABDOMEN IMPRESSION: 1. Increased hepatic echogenicity noted likely related to fatty infiltration of the liver but other sources of hepatocellular disease cannot be excluded. Recommend clinical correlation. Dictated by: Jared TORRE Interpreted: Farnaz Wilkerson MD on 03/07/2017 at 13:21 X-RAY CHEST IMPRESSION: No acute pulmonary process. Dictated and approved by: Bridget Sandoval M.D. on 03/06/2017 at 17:26 Assessment & Plan This is an 81-year-old male with history diabetes type II, hypertension, hyperlipidemia, chronic back pain, prostate cancer status post prostatectomy and radiation therapy with bladder neck constriction status post bladder neck surgery with most recent in December 2016 requiring self-catheterization and history of recurrent UTIs who presented to [facility] hospital with 1 week history of hypoglycemia secondary to decreased appetite over the past 2-3 weeks and severe lumbar back pain. Patient was admitted at his PCPs request and for hypoglycemia and urinary tract infection, and hyperkalemia. Hospital day 2. # Acute complicated UTI, present on admission, active - Vital signs: Temperature 36.4, pulse 85, respiratory rate 16, blood pressure 127 with a map of 79, 95% on room air. - She has history of recurrent UTIs contrary to bladder neck stricture and requires self-catheterization. - UA showed: Urine color was straw cloudy, pH 6, large occult blood, large leukocyte esterase, 11-50 RBCs, WBCs packed, few bacteria - And culture ordered and pending - We will continue ceftriaxone 2000 mg every 24 hours - Chest x-ray was negative for acute cardiopulmonary process - We will hold medication methenamine hippurate # subacute back pain and rapid functional decline due to that , present on admission, active - We will continue by mouth oxycodone 5 mg every 4 hours when necessary - Physical therapy consult - We will continue gabapentin 3 mg twice a day - Morphine 1 mg IV q4h PRN pain - CT lumbar pending # Hypoglycemia, and a known type II diabetic present on admission - Patient has had blood glucoses in the 30s to 40s range over the past week - His Lantus 40 units daily at bedtime was decreased to 20 units daily at bedtime and then stopped by his PCP - Patient states for the past 3 weeks he has no desire to eat or drink secondary to extreme chronic pain. Attributes his low glucose blood glucose levels to his decreased by mouth intake. - He should also states that he has remained compliant on his insulin regimen despite decreased by mouth intake over this time period. - Dietitian consult ordered - human service worker consult ordered - We will start low-dose correctional scale insulin - We will hold metformin and glipizide # Right upper quadrant tenderness, as seen on physical exam - Abdominal ultrasound revealed increased hepatic ecogenicity. Pain is less today. LFTs are normal. Will continue to monitor. Recommend outpatient follow up. # Anemia, normocytic hypochromic, present on admission, active - Patient has history of chronic anemia - We will guaiac stool #Hyperkalemia, present on admission, improved - initial Potassium 6.3, - Patient received single dose of Kayexalate in the ED - We will start albuterol treatment - We will hold off on insulin and glucose in patients hypoglycemia on admission - We will recheck potassium #Chronic kidney disease, present on admission, active - Patient records from December 2015 showed creatinine of 1.98 - Patient's creatinine currently is 1.63 - Continue gentle hydration with normal saline at 80ml/hour # Dehydration, present on admission, active - He said mucous membranes appear dry - IV fluids as previously stated Hyponatremia, present on admission, resolved # Chronic back pain, - We will continue by mouth oxycodone 5 mg every 4 hours when necessary - Physical therapy consult to evaluate for possible SNF - We will continue gabapentin 3 mg twice a day # Sacral skin breakdown, present on admission, active - We will consult wound care # Skin rash groin, present on admission, active - Nystatin powder Prostate cancer, recurrent UTI, chronic pain. 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 CODE STATUS: Full code PCP: Dominique Laguerre DVT PE prophylaxis: SubQ heparin Q8H Contact: Patient's [phone] Marcy VTE Prophylaxis: Sub-Q Heparin (Unfractionated) Resuscitation Status: CPR: Attempt Resuscitation Attending Statement The patient was seen and examined together with Dr. Godwin on 03/07/17 and I agree with the history, exam and plan as outlined in the note above. Mary Jane Godwin DO Mar 07, 2017 15:08 Jourdan Real MD Mar 07, 2017 18:37
--- NOTE | 2017-03-07 15:28 | NUR ---
NUTRITION ASSESSMENT: ASSESS: Pt is an 81yo M admitted for hypoglycemia and urinary tract infection, and hyperkalemia. Pt reported that due to being in so much back pain he really has no appetite and food sounds terrible to him. Pt's reported that pt was able to drink his milk at lunch and ate about his soup. Pt was willing to try Glucerna to help supplement his meals. PMHX: Prostate ca, DM, HTN, HLD, CVA, osteoarthritis LABS: Reviewed. K 6.1, Cl 112, CO2 16, Bun 53, Dice Table Operator 1.63, Alb 3.2 MEDS: Reviewed. GI: BMx1 03/07 SKIN: Jeffery 14 CURRENT WTS: 93.4kg, BMI 34.3kg/m2, IBW 61.8kg DIET: Heart Healthy/ Consistent Carb, No PO recorded yet EST. NEEDS: BMI Kcals: 2055-2800kcal/day (20-22kcal/kg) Pro: 75-95g/day (1.2-1.5g/kg IBW) NUTRITION DIAGNOSIS: 1.) Inadequate oral intake related to uncontrolled pain as evidence by pt reported decreased appetite due to persistent back pain. NUTRITION INTERVENTION: 1.) Discussed eating high kcal/pro foods when appetite is down. Discussed eating smaller, more frequent meals. Provided high kcal/pro handout and recipe book 2.) Pt agree to receive chocolate Glucerna on L tray. stated that she would make sure he drank it. Encouraged pt to sip on drink throughout the day 3.) Pt did not want to go over DM diet education. stated that they are both diabetic and are very familiar with the diet. Handouts on DM diet were left with pt and . Encouraged them to review the handouts and contact RD if they have any questions MONITOR / EVAL: PO, wt, GI, labs, POC, nutrition status. Will continue to monitor per moderate nutrition risk guidelines.
--- NOTE | 2017-03-07 16:43 | DRSVH ---
PROCEDURE: CT LUMBAR SPINE WITHOUT CONTRAST ([id number]) INDICATIONS: SEVERE SACRO-COCCYGEAL PAIN TECHNIQUE: Noncontrast 3 mm thick sections acquired from the T12 level to the sacrum. Sagittal and coronal refo rmats were constructed. For radiation dose reduction, the following was used: automated exposure co ntrol. COMPARISON: None. FINDINGS: Image quality: Excellent. Bones: There is normal bony alignment. No acute vertebral body compression fractures. No suspiciou s lytic or blastic bony lesions. Central spinal caliber is of normal overall caliber. No pars defec ts. T12-L1: Mild disc desiccation. Broad-based disc bulge. No canal stenosis. No neural foraminal narrowi ng. L1-L2: Mild disc desiccation and height loss. Broad-based disc bulge. No canal stenosis. No foraminal narrowing. L2-L3: Mild disc desiccation and height loss. Broad-based disc bulge. Mild facet and ligamentum flavu m hypertrophy. Mild canal stenosis. No foraminal stenosis. L3-L4: Mild disc desiccation. Broad-based disc bulge. Mild facet and ligamentum flavum hypertrophy. N o canal stenosis. Mild left neuroforaminal narrowing. No right foraminal stenosis. L4-L5: Mild disc desiccation height loss. Broad-based disc bulge. Moderate facet and ligamentum flavu m hypertrophy. Mild canal stenosis. No foraminal narrowing. L5-S1: Mild disc desiccation. Broad-based disc bulge. Moderate facet hypertrophy and marked facet scl erosis. Mild canal stenosis. Moderate right neuroforaminal narrowing. Soft tissues: No retroperitoneal masses or hematomas. Visualized aorta is normal in caliber. IMPRESSION: 1. Mild disc desiccation height loss throughout the lumbar spine. 2. Broad-based disc bulges and mild facet ligamentum flavum hypertrophy with resultant mild canal kris nosis at L2-3, L4-5, L5-S1. 3. Dictated by: Mattie Haney M.D. on 03/07/2017 at 16:35 Approved by: Mattie Haney M.D. on 03/07/2017 at 16:42
--- NOTE | 2017-03-07 17:25 | NUR ---
Wound Care Wound evaluation order received, Pt seen at bedside. 81 yo male admitted to [facility] for UTI and major complaints of debilitating back pain. Observation reveals a stage 2 PU at his right buttock which is POA and 0.5 cm in diameter with excoriated skin at sacrum as well. I suspect that this skin breakdown is secondary to limitations in mobility and likely shearing of skin with bed mobility and supine to sit transfers. Recommend P500 bed and a mepilex sacral dressing be placed, also frequent repositioning.
--- NOTE | 2017-03-07 17:50 | NUR ---
Pain/Oliva/Potassium Pt. has been c/o lower back and sacral pain throughout shift and MD was made aware. Pt. was recently given morphine 2mg IV push and will reassess. Oliva cath was placed in Pt. at ~0945 and I meet some resistance. Pt. urine pale yellow but slight cloudy looking. Pts. potassium level this morning was 6.1 and was given kayexalate, Pts. potassium level is now 5.1.
[2017-03-07] MEDS: cefTRIAXone Inj 2,000 MG in Dextrose 5% Minibag Plus 50 ML IV SCH (20:18)
--- NOTE | 2017-03-07 20:45 | NUR ---
Transfer Pt arrived on unit at 204403/07/17 via bed. Pt oriented to room. Call light within reach.
[2017-03-07] MEDS ORDERED: LORazepam 1 mg Tablet PO ONE (21:00)
--- NOTE | 2017-03-07 21:07 | NUR ---
TRANSFER Pt transferred to [facility][note 3]-, report given to Won Yip RN, pt transported via bed with all belongings.
[2017-03-08 02:53] VITALS: BP 156/80; PULSE 81; RESP 16; O2SAT 95
[2017-03-08 03:12] VITALS: PULSE 78
[2017-03-08] MEDS: Heparin 5,000 Unit/mL Inj SUBQ SCH ×3 (05:54→21:56)
[2017-03-08 07:17] LABS: BASOPHILS % (AUTO) 0.3 % (0-3); MONOCYTES % (AUTO) 10.7 % (4-12); Mean Corpuscular Hemoglobin 28.5 pg (27.0-35.0); Mean Corpuscular Volume 91.9 fL (81-100); NEUTROPHILS % (AUTO) 67.5 % (40-74); Platelet Count 260 bil/L (150-400)
[2017-03-08 08:00] VITALS: BP 125/68; PULSE 77; PULSE 78; RESP 18; O2SAT 94
[2017-03-08] MEDS: Insulin LISPRO 300 Unit/3 mL Inj SUBQ SCH ×4 (08:00→21:55)
[2017-03-08] MEDS: 0.9% Sodium Chloride 1,000 ML IV SCH ×2 (08:13→18:45)
[2017-03-08] MEDS: Nystatin 100,000 Unit/Gm 15 Gm Powder TOPICAL SCH ×2 (08:40→20:18)
--- NOTE | 2017-03-08 09:25 | NUR ---
SENIOR IT ASSISTANT witnessed [facility]'s Signature. ALENA ValienteSW
[2017-03-08 13:00] VITALS: BP 139/73; PULSE 71; RESP 20; O2SAT 97
--- NOTE | 2017-03-08 13:18 | NUR ---
Evaluation completed. Please go to "Notes" then click on "Assessments and Notes" (bottom left corner of screen). Then select appropriate discipline tab on top of screen.
--- NOTE | 2017-03-08 14:13 | PCM.PNMED ---
Subjective Date of Service Mar 08, 2017 Subjective The patient is doing well but feels generally weak and is having a lot of lower back pain which radiates to the inside of both eyes with most movements. He did poorly with physical therapy because of pain control. At home is his major limitation, but he is not taking active pain medications from his memory. He notes his urine have been cloudy. He does evidence for recurrent UTI and context of self-catheterization. He denies any chest pain, palpitations, cough or shortness of breath. No overnight events. Exam Vital Signs Vital Sign - Last Date Time Temp Pulse Resp B/P Pulse Ox O2 Delivery O2 Flow Rate FiO2 03/08/17 08:00 78 03/08/17 08:00 36.4 18 125/68 94 Room Air Intake and Output 03/07/17 03/07/17 03/08/17 Cumulative From/Thru 15:00 23:00 07:00 03/06/17 16:12 - 03/08/17 05:58 Intake Total 1927 ml 1502 ml 4974 ml Output Total 2100 ml 1150 ml 4010 ml Balance -173 ml 352 ml 964 ml Intake Oral 880 ml 300 ml 1180 ml IV Total 1047 ml 1202 ml 3794 ml Output Urine Total 2100 ml 1150 ml 4010 ml # Bowel Movements 1 Exam Alert and oriented 3, no distress. Fluent speech Anicteric sclera. Lungs are clear with normal rate and effort Heart is regular without murmur gallop or rub Abdomen soft nontender, flat Extremities are free of edema. Skin is free of rash or lesions. Patient has good pedal pulses bilaterally. IVs and Medications Medications Reviewed: Medications were reviewed in detail Lab and Diagnostics Result Diagram: 03/08/17 0700 03/08/17 0700 X-Rays, CTs and MRIs Caution: Report not yet finalized and possibly incomplete! US ABDOMEN IMPRESSION: 1. Increased hepatic echogenicity noted likely related to fatty infiltration of the liver but other sources of hepatocellular disease cannot be excluded. Recommend clinical correlation. Dictated by: Jared TORRE Interpreted: Farnaz Wilkerson MD on 03/07/2017 at 13:21 X-RAY CHEST IMPRESSION: No acute pulmonary process. Dictated and approved by: Bridget Sandoval M.D. on 03/06/2017 at 17:26 Assessment & Plan This is an 81-year-old male with history diabetes type II, hypertension, hyperlipidemia, chronic back pain, prostate cancer status post prostatectomy and radiation therapy with bladder neck constriction status post bladder neck surgery with most recent in December 2016 requiring self-catheterization and history of recurrent UTIs who presented to [facility] hospital with 1 week history of hypoglycemia secondary to decreased appetite over the past 2-3 weeks and severe lumbar back pain. Patient was admitted at his PCPs request and for hypoglycemia and urinary tract infection, and hyperkalemia. Hospital day 2. # Acute complicated UTI, present on admission, active and improving. - Vital signs: Temperature 36.4, pulse 85, respiratory rate 16, blood pressure 127 with a map of 79, 95% on room air. - She has history of recurrent UTIs contrary to bladder neck stricture and requires self-catheterization. - UA showed: Urine color was straw cloudy, pH 6, large occult blood, large leukocyte esterase, 11-50 RBCs, WBCs packed, few bacteria - And culture ordered and pending - We will continue ceftriaxone 2000 mg every 24 hours - Chest x-ray was negative for acute cardiopulmonary process - We will hold medication methenamine hippurate We will continue ceftriaxone empirically. Cultures indicated 1000 CFU's of probably Escherichia coli. # subacute back pain and rapid functional decline due to that , present on admission, active and stable. - We will continue by mouth oxycodone 5 mg every 4 hours when necessary - Physical therapy consult - We will continue gabapentin 3 mg twice a day - Morphine 1 mg IV q4h PRN pain - CT lumbar negative for acute compression fracture but consistent with severe diffuse lumbar spinal stenosis. # Hypoglycemia, and a known type II diabetic present on admission, improved - Patient has had blood glucoses in the 30s to 40s range over the past week - His Lantus 40 units daily at bedtime was decreased to 20 units daily at bedtime and then stopped by his PCP - Patient states for the past 3 weeks he has no desire to eat or drink secondary to extreme chronic pain. Attributes his low glucose blood glucose levels to his decreased by mouth intake. - He should also states that he has remained compliant on his insulin regimen despite decreased by mouth intake over this time period. - Dietitian consult ordered - community organization worker consult ordered - We will start low-dose correctional scale insulin - We will hold metformin and glipizide No further hypoglycemia, no change to her medical plan. # Right upper quadrant tenderness, as seen on physical exam - Abdominal ultrasound revealed increased hepatic ecogenicity. Pain is less today. LFTs are normal. Will continue to monitor. Recommend outpatient follow up. # Anemia, normocytic hypochromic, present on admission, active and stable - Patient has history of chronic anemia - We will guaiac stool #Hyperkalemia, present on admission, improved - initial Potassium 6.3, - Patient received single dose of Kayexalate in the ED - We will start albuterol treatment - We will hold off on insulin and glucose in patients hypoglycemia on admission - We will recheck potassium on a daily basis #Chronic kidney disease, present on admission, active and stable - Patient records from December 2015 showed creatinine of 1.98 - Patient's creatinine currently is 1.63 - Continue gentle hydration with normal saline at 80ml/hour # Dehydration, present on admission, active and resolved - He said mucous membranes appear dry - IV fluids as previously stated # Hypovolemic Hyponatremia, present on admission, resolved # Chronic back pain, POA. Stable. - We will continue by mouth oxycodone 5 mg every 4 hours when necessary - Physical therapy consult to evaluate for possible SNF - We will continue gabapentin 3 mg twice a day # Sacral skin breakdown, present on admission, active - We will consult wound care # Skin rash groin, present on admission, active - Nystatin powder Prostate cancer, recurrent UTI, chronic pain. 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 CODE STATUS: Full code PCP: Dominique Laguerre DVT PE prophylaxis: SubQ heparin Q8H Contact: Patient's [phone] Richelle VTE Prophylaxis: Sub-Q Heparin (Unfractionated) Resuscitation Status: CPR: Attempt Resuscitation Avila Olson MD Mar 08, 2017 14:13
--- NOTE | 2017-03-08 14:42 | NUR ---
Social Work Note - Continued d/c planning GREENBELT met with pt - pt worked with PT - PT is recommending SNF for rehab. Pt states he will do what is recommended - pt's Richelle also in the room. She states that she would like him to be stronger before going home, but if he is able to assist with transfers, she could take him home. Pt and asked that a referral be made to [facility]. GREENBELT contacted UR Specialist to make referral - [facility] and Paperwork on chart. GREENBELT discussed concerns that PT identified - Pt made statements that he was considering suicide - asked his to put away his gun. Pt states that he is not actively suicidal but admits that when the pain is so intense, he feels that he can not cope. He states that he spoke with Dr Olson and they are going to work on better pain control. Pt is future oriented - states that he and his have a plan to go on a [email or web address] cruise this fall and his goal is to go and have fun. He denies any previous depression, denies any new stress. Pt's states that he was emotional due to the pain and she is able to support him. They will seek out help if needed in the future. Plan: Developing: Referral to [facility] for rehab vs home with and Home Health. CRISTOPHER Valiente
[2017-03-08] MEDS: HYDROcodone-APAP 5-325 mg Tablet PO PRN ×2 (15:04→20:17)
--- NOTE | 2017-03-08 16:34 | NUR ---
Pain Patient reporting pain level of 5-6/10, Morphine 2mg IV and Vicodin 2 tablets given with relief. Patient turned but unable to stay longer on his side, preferred to be on his back. Will continue to monitor.
[2017-03-08 20:13] VITALS: BP 142/72; PULSE 70; RESP 18; O2SAT 96
[2017-03-08] MEDS: cefTRIAXone Inj 2,000 MG in Dextrose 5% Minibag Plus 50 ML IV SCH (20:17)
[2017-03-09 01:30] VITALS: BP 132/74; PULSE 68; RESP 16; O2SAT 94
[2017-03-09] MEDS: HYDROcodone-APAP 5-325 mg Tablet PO PRN ×3 (06:00→21:47)
[2017-03-09] MEDS: Heparin 5,000 Unit/mL Inj SUBQ SCH ×3 (06:01→21:47)
[2017-03-09] MEDS: 0.9% Sodium Chloride 1,000 ML IV SCH ×2 (06:01→10:02)
[2017-03-09 06:13] VITALS: BP 157/71; PULSE 66; RESP 17; O2SAT 97
--- NOTE | 2017-03-09 06:22 | NUR ---
Pain Pain has been well controlled with Vicodin. Pt also premedicated with morphine for initial assessment and bridging.
[2017-03-09] MEDS: Nystatin 100,000 Unit/Gm 15 Gm Powder TOPICAL SCH ×2 (08:13→20:47)
[2017-03-09] MEDS: Insulin LISPRO 300 Unit/3 mL Inj SUBQ SCH ×4 (08:13→21:48)
[2017-03-09 10:19] VITALS: BP 132/67; PULSE 70; RESP 18; O2SAT 96
--- NOTE | 2017-03-09 10:30 | NUR ---
Morning Rounds Dr. Rizo present, stated she will assess patient, but will likely order lumbar MRI. Social work stated patient has been referred to [facility], likely will not discharge until Saturday.
[2017-03-09 14:10] VITALS: BP 153/77; PULSE 79; RESP 20; O2SAT 97
--- NOTE | 2017-03-09 14:16 | PCM.PNMED ---
Subjective Date of Service Mar 09, 2017 Subjective Patient was seen and examined at bedside today. Patient denies any chest pain, shortness of breath, nausea, vomiting, diarrhea. Patient states that he is still having low back pain and having difficulty moving his legs without pain more so in the lateral direction. Overnight events: None none Exam Vital Signs Vital Sign - Last Date Time Temp Pulse Resp B/P Pulse Ox O2 Delivery O2 Flow Rate FiO2 03/09/17 10:19 36.6 70 18 132/67 96 Room Air Intake and Output 03/08/17 03/08/17 03/09/17 Cumulative From/Thru 15:00 23:00 07:00 03/06/17 16:12 - 03/09/17 06:20 Intake Total 1952 ml 1484 ml 8410 ml Output Total 1200 ml 1250 ml 6460 ml Balance 752 ml 234 ml 1950 ml Intake Oral 750 ml 375 ml 2305 ml IV Total 1202 ml 1109 ml 6105 ml Output Urine Total 1200 ml 1250 ml 6460 ml # Bowel Movements 1 Exam Physical Exam: GEN: Patient was awake, alert, responding appropriately to questions HEENT: Pupils equal round and reactive to light, extraocular eye muscles intact , Neck soft supple, trachea midline, nomocephalic/atraumatic CV: +S1/S2, regular rate and rhythm, no murmurs auscultated Respiratory: CTAB, no wheezes, rales, rhonchi GI: +bowel sounds x4, soft, compressible, nontender to palpation Musculoskeletal: Negative straight leg raise test, decreased range of motion in abduction, 5/5 dorsiflexion and plantar flexion strength EXT: no clubbing, cyanosis, edema Neuro: Cranial nerves II-XII grossly intact Psych: mood and affect were appropriate IVs and Medications Medications Reviewed: Medications were reviewed in detail Lab and Diagnostics Result Diagram: 03/08/17 0700 03/09/17 0735 X-Rays, CTs and MRIs Caution: Report not yet finalized and possibly incomplete! US ABDOMEN IMPRESSION: 1. Increased hepatic echogenicity noted likely related to fatty infiltration of the liver but other sources of hepatocellular disease cannot be excluded. Recommend clinical correlation. Dictated by: Jared TORRE Interpreted: Farnaz Wilkerson MD on 03/07/2017 at 13:21 X-RAY CHEST IMPRESSION: No acute pulmonary process. Dictated and approved by: Bridget Sandoval M.D. on 03/06/2017 at 17:26 Assessment & Plan This is an 81-year-old male with history diabetes type II, hypertension, hyperlipidemia, chronic back pain, prostate cancer status post prostatectomy and radiation therapy with bladder neck constriction status post bladder neck surgery with most recent in December 2016 requiring self-catheterization and history of recurrent UTIs who presented to [facility] with 1 week history of hypoglycemia secondary to decreased appetite over the past 2-3 weeks and severe lumbar back pain. Patient was admitted at his PCPs request and for hypoglycemia and urinary tract infection, and hyperkalemia. Hospital day 2. Acute complicated UTI, present on admission, active and improving. - He has history of recurrent UTIs contrary to bladder neck stricture and requires self-catheterization. - UA showed: Urine color was straw cloudy, pH 6, large occult blood, large leukocyte esterase, 11-50 RBCs, WBCs packed, few bacteria - Urine culture negative -Continue ceftriaxone 2000 mg every 24 hours - Chest x-ray was negative for acute cardiopulmonary process - We will hold medication methenamine hippurate Subacute back pain and rapid functional decline due to that , present on admission, active and stable. - Continue by mouth oxycodone 5 mg every 4 hours when necessary - Physical therapy following -Continue gabapentin 3 mg twice a day - Morphine 1 mg IV q4h PRN pain - CT lumbar negative for acute compression fracture but consistent with severe diffuse lumbar spinal stenosis. -OMT Hypoglycemia, and a known type II diabetic present on admission, improved -Start Lantus 10 units daily at bedtime patient's blood glucose seems to be increasing -Restart metformin thousand milligrams twice a day continue to hold glipizide - Dietitian consult ordered - school social worker consult ordered -Continue low-dose correctional scale insulin Right upper quadrant tenderness, as seen on physical exam - Abdominal ultrasound revealed increased hepatic ecogenicity. -Pain is less today. -LFTs are normal. -Will continue to monitor. -Recommend outpatient follow up. Anemia, normocytic hypochromic, present on admission, active and stable - Patient has history of chronic anemia - We will guaiac stool Hyperkalemia, present on admission, improved - initial Potassium 6.3, - Patient received single dose of Kayexalate in the ED - Potassium today 4.8 (within normal limits) -Continue to monitor Chronic kidney disease, present on admission, active and stable - Patient records from December 2015 showed creatinine of 1.98 - Patient's creatinine currently is 1.10 (within normal limits) -Discontinue IV fluids Hypovolemic Hyponatremia, present on admission, resolved -IV fluids discontinued Chronic back pain, POA. Stable. - We will continue by mouth oxycodone 5 mg every 4 hours when necessary - Physical therapy consult to evaluate for possible SNF - We will continue gabapentin 3 mg twice a day -Patient responded well to OMT Sacral skin breakdown, present on admission, active - We will consult wound care Skin rash groin, present on admission, active - Nystatin powder Hypertension - Continue outpatient medication Micardis 40 mg daily Hyperlipidemia -Pharmacy to start comparable dose to patient's home dose of lovastatin 40 mg daily at bedtime Hypothyroidism diagnosed 05/14/2014 - Continue levothyroxine 50 g daily Disposition: Patient responded well to OMT today. Physical therapy should continue working with the patient. Patient's leukocytosis has resolved patient should be discharged within the next 1-2 days. CODE STATUS: Full code PCP: Dominique Laguerre DVT PE prophylaxis: SubQ heparin Q8H Contact: Patient's [phone] Richelle VTE Prophylaxis: Sub-Q Heparin (Unfractionated) Resuscitation Status: CPR: Attempt Resuscitation Linh Rizo DO Mar 09, 2017 14:16
--- NOTE | 2017-03-09 14:21 | PCM.PROC ---
Procedure Note Date of Service: Mar 09, 2017 Procedure Details: Procedure: Osteopathic Manipulative Treatment Subjective: Patient has a known history of low back pain. However the patient had increasing low back pain causing debility. Repeat CT scan just shows mild disc changes negative for spinal canal stenosis which could potentially cause cauda equina syndrome. The patient states that his pain is significantly worse with movement especially abduction of the legs. The patient states that his pain level is generally only at a 2/10 if he is not moving and lying still in bed. Risks and benefits of OMT were explained to the patient and verbal consent obtained. Osteopathic Structural Exam: Lumbars: Paraspinal hypertonicity on the left greater than right Pelvis: Anterior R innominate Sacrum: SI joint restriction on the left greater than right Lower extremities: Psoas hypertonicity on the left greater than right Patient responded well to treatment. Prior to treatment the patient only had about 10 of abduction however after treatment the patient had 45 of abduction with little to no pain. Osteopathic treatment modalities used: Myofascial release, BLT, and soft tissue technique Linh Rizo DO Mar 09, 2017 14:21
[2017-03-09 18:06] VITALS: BP 139/71; PULSE 67; RESP 18; O2SAT 96
--- NOTE | 2017-03-09 18:45 | NUR ---
No Lunch Patient slept through lunch, did not call order in and did not have lunch.
[2017-03-09] MEDS: cefTRIAXone Inj 2,000 MG in Dextrose 5% Minibag Plus 50 ML IV SCH (20:39)
[2017-03-09] MEDS: Insulin GLARgine 100 Unit/mL Syringe SUBQ SCH (21:48)
--- NOTE | 2017-03-09 22:40 | NUR ---
Sleep aide request something to help sleep used "some kind of OTC at home" paged obtained melatonin
[2017-03-09 22:46] VITALS: BP 130/62; PULSE 69; RESP 19; O2SAT 95
[2017-03-10 02:05] VITALS: BP 121/65; PULSE 66; RESP 16; O2SAT 97
[2017-03-10 06:07] VITALS: BP 148/70; PULSE 66; RESP 18; O2SAT 97
[2017-03-10] MEDS: HYDROcodone-APAP 5-325 mg Tablet PO PRN ×3 (06:15→22:06)
[2017-03-10] MEDS: Heparin 5,000 Unit/mL Inj SUBQ SCH ×3 (06:16→21:17)
[2017-03-10 07:20] LABS: Mean Corpuscular Hemoglobin 28.9 pg (27.0-35.0); Mean Corpuscular Volume 90.6 fL (81-100)
[2017-03-10] MEDS: Nystatin 100,000 Unit/Gm 15 Gm Powder TOPICAL SCH ×2 (07:35→21:16)
[2017-03-10] MEDS: Insulin LISPRO 300 Unit/3 mL Inj SUBQ SCH ×4 (08:02→21:19)
--- NOTE | 2017-03-10 12:54 | NUR ---
Ambulation Patient up to chair w/PT this afternoon. Pt spent 20 min in chair and requested to go back to bed r/t increased back pain. Pt movement slow, but able to get into bed on own w/FWW and SBA. Gait belt in place for safety.
[2017-03-10 13:07] VITALS: BP 145/72; PULSE 71; RESP 18; O2SAT 96
--- NOTE | 2017-03-10 16:06 | DRSVH ---
PROCEDURE: MRI LUMBAR SPINE WITH AND WITHOUT CONTRAST ([id number]) INDICATIONS: Low back pain and lower extremity weakness bilaterally. TECHNIQUE: Noncontrast sagittal T1 spin echo and T2 fast spin echo, sagittal STIR, axial T1 and T2 fast spin ech o through the lumbar spine. In cases with scoliosis, additional coronal T2 fast spin echo may be per formed. After the administration of contrast, sagittal and axial T1 spin echo with fat saturation th rough the lumbar spine. COMPARISON: [facility], MR, MR LUMBAR SPINE WO CON, 01/23/2017, 14:54. [facility], CT, CT LUMBAR SPINE WO CON, 03/07/2017, 15:59. FINDINGS: Image quality: There is mild motion artifact. Alignment and curvature: There is minimal anterolisthesis at L5-S1. Marrow: Marrow is of normal overall signal. No acute vertebral body compression fractures. No susp icious marrow enhancement. Spinal cord: Conus medullaris terminates at the L2 level. Visualized spinal cord demonstrates stella l signal, without suspicious enhancement. Paraspinous soft tissues: No paravertebral masses or abnormal enhancement. L1-L2: Within normal limits. L2-L3: Minimal broad-based disc bulge and mild facet arthropathy. There is minimal spinal canal narr owing with mild left and minimal right neuroforaminal narrowing. L3-L4: Minimal disc bulge and mild facet arthropathy. No spinal canal narrowing. There is minimal b ilateral neuroforaminal narrowing. L4-L5: Small broad-based disc bulge and mild facet arthropathy. There is associated minimal spinal c anal narrowing with mild narrowing of the left lateral recess. There is mild bilateral neuroforamina l narrowing. The findings are similar to the prior study. L5-S1: Small broad-based disc bulge and moderate facet arthropathy with small joint effusions. There is mild ligamentum flavum hypertrophy. There is mild spinal canal narrowing with mild narrowing of the lateral recesses. There is moderate left and mild to moderate right right neuroforaminal narrowi ng. The findings are similar to the prior study. IMPRESSION: 1. Mild multilevel degenerative changes in the lumbar spine which appear similar to the prior MRI st ud. 2. Multilevel neuroforaminal narrowing including moderate narrowing on the left at L5-S1 as well as mild to moderate narrowing on the right. 3. Mild spinal canal narrowing at L5-S1 as well as minimal narrowing at L2-L3 on L4-5. No high-grad e stenoses. Dictated by: Levar Dotson M.D. on 03/10/2017 at 16:04 Approved by: Levar Dotson M.D. on 03/10/2017 at 16:04
--- NOTE | 2017-03-10 16:21 | PCM.PNMED ---
Subjective Date of Service Mar 10, 2017 Subjective Patient was seen and examined at bedside today. Patient denies any chest pain, shortness of breath, nausea, vomiting, diarrhea. Patient complains of low back pain however states that he feels that it has improved compared to yesterday. Overnight events: None Exam Vital Signs Vital Sign - Last Date Time Temp Pulse Resp B/P Pulse Ox O2 Delivery O2 Flow Rate FiO2 03/10/17 13:07 36.5 71 18 145/72 96 Room Air Intake and Output 03/09/17 03/09/17 03/10/17 Cumulative From/Thru 15:00 23:00 07:00 03/06/17 16:12 - 03/10/17 06:06 Intake Total 1546 ml 1350 ml 21968 ml Output Total 900 ml 700 ml 8060 ml Balance 646 ml 650 ml 3246 ml Intake Oral 720 ml 360 ml 3385 ml IV Total 826 ml 990 ml 7921 ml Output Urine Total 900 ml 700 ml 8060 ml # Bowel Movements 1 Exam Physical Exam: GEN: Patient was awake, alert, responding appropriately to questions HEENT: Pupils equal round and reactive to light, extraocular eye muscles intact , Neck soft supple, trachea midline, nomocephalic/atraumatic CV: +S1/S2, regular rate and rhythm, no murmurs auscultated Respiratory: CTAB, no wheezes, rales, rhonchi GI: +bowel sounds x4, soft, compressible, nontender to palpation EXT: no clubbing, cyanosis, edema Neuro: Cranial nerves II-XII grossly intact Psych: mood and affect were appropriate IVs and Medications Medications Reviewed: Medications were reviewed in detail Lab and Diagnostics Result Diagram: 03/10/17 0658 03/10/17 0658 X-Rays, CTs and MRIs Caution: Report not yet finalized and possibly incomplete! US ABDOMEN IMPRESSION: 1. Increased hepatic echogenicity noted likely related to fatty infiltration of the liver but other sources of hepatocellular disease cannot be excluded. Recommend clinical correlation. Dictated by: Jared TORRE Interpreted: Farnaz Wilkerson MD on 03/07/2017 at 13:21 X-RAY CHEST IMPRESSION: No acute pulmonary process. Dictated and approved by: Bridget Sandoval M.D. on 03/06/2017 at 17:26 Assessment & Plan This is an 81-year-old male with history diabetes type II, hypertension, hyperlipidemia, chronic back pain, prostate cancer status post prostatectomy and radiation therapy with bladder neck constriction status post bladder neck surgery with most recent in December 2016 requiring self-catheterization and history of recurrent UTIs who presented to [facility] with 1 week history of hypoglycemia secondary to decreased appetite over the past 2-3 weeks and severe lumbar back pain. Patient was admitted at his PCPs request and for hypoglycemia and urinary tract infection, and hyperkalemia. Hospital day 2. Acute complicated UTI, present on admission, active and improving. - He has history of recurrent UTIs contrary to bladder neck stricture and requires self-catheterization. - UA showed: Urine color was straw cloudy, pH 6, large occult blood, large leukocyte esterase, 11-50 RBCs, WBCs packed, few bacteria - Urine culture negative -Continue ceftriaxone 2000 mg every 24 hours - Chest x-ray was negative for acute cardiopulmonary process - We will hold medication methenamine hippurate Subacute back pain and rapid functional decline due to that , present on admission, active and stable. - Continue by mouth oxycodone 5 mg every 4 hours when necessary - Physical therapy following -Continue gabapentin 3 mg twice a day - Morphine 1 mg IV q4h PRN pain - CT lumbar negative for acute compression fracture but consistent with severe diffuse lumbar spinal stenosis. -MRI of the lumbar spine results pending - We will continue gabapentin 3 mg twice a day -Patient responded well to OMT Hypoglycemia, and a known type II diabetic present on admission, improved -Increase Lantus to 20 units daily at bedtime -Continue metformin 1000 milligrams twice a day continue to hold glipizide - Dietitian consult ordered - grey roll worker consult ordered -Continue low-dose correctional scale insulin Right upper quadrant tenderness, as seen on physical exam - Abdominal ultrasound revealed increased hepatic ecogenicity. -Pain is less today. -LFTs are normal. -Will continue to monitor. -Recommend outpatient follow up. Anemia, normocytic hypochromic, present on admission, active and stable - Patient has history of chronic anemia Hyperkalemia, present on admission, (resolved) - Patient received single dose of Kayexalate in the ED - Potassium currently within normal limits -Continue to monitor Chronic kidney disease, present on admission, active and stable - Patient records from December 2015 showed creatinine of 1.98 - Patient's creatinine currently is within normal limits -Discontinue IV fluids Hypovolemic Hyponatremia, present on admission, resolved -IV fluids discontinued Sacral skin breakdown, present on admission, active - We will consult wound care Skin rash groin, present on admission, active - Nystatin powder Hypertension - Continue outpatient medication Micardis 40 mg daily Hyperlipidemia -Pharmacy to start comparable dose to patient's home dose of lovastatin 40 mg daily at bedtime Hypothyroidism diagnosed 05/14/2014 - Continue levothyroxine 50 g daily Disposition: Patient is improving. Patient's back pain is less and the patient has been more functional today. Patient was able to sit up in a chair for meals. We will obtain an MRI today to see if there is any further narrowing or spinal stenosis not seen on CT scan. Patient will most likely be discharged to a SNF for rehabilitation. CODE STATUS: Full code PCP: Dominique Laguerre DVT PE prophylaxis: SubQ heparin Q8H Contact: Patient's [phone] Richelle VTE Prophylaxis: Sub-Q Heparin (Unfractionated) Resuscitation Status: CPR: Attempt Resuscitation Linh Rizo DO Mar 10, 2017 16:21
--- NOTE | 2017-03-10 16:26 | NUR ---
Social Work: Continued discharge planning Data & Assessment: EMR reviewed. Patient is on his fourth day of hospitalization and is not medically stable for discharge. [facility] Farmer received a call from [facility] stating that patient was accepted with Dr. Jordan to follow. SW will continue to follow and assist patient throughout stay. Plan: Patient will discharge to [facility] when medically ready. SW will continue to follow and assist patient throughout stay. Pati Parmar LMSW, ACM
[2017-03-10] MEDS: Insulin GLARgine 100 Unit/mL Syringe SUBQ SCH (21:18)
[2017-03-10] MEDS: cefTRIAXone Inj 2,000 MG in Dextrose 5% Minibag Plus 50 ML IV SCH (21:19)
[2017-03-10 22:11] VITALS: BP 159/80; PULSE 62; RESP 16; O2SAT 97
--- NOTE | 2017-03-11 05:41 | NUR ---
Pain/Turning Pt has been in consistent pain tonight, and is very reluctant to turn. Reinforced teaching for turning to prevent pressure ulcer worsening, and pt willing to turn. Pt able to turn self w/o any assistance, but needs the reminding, also using pillows to maintain positioning and support elbows.
[2017-03-11] MEDS: Heparin 5,000 Unit/mL Inj SUBQ SCH (06:00)
[2017-03-11 06:06] VITALS: BP 144/78; PULSE 66; RESP 16; O2SAT 97
[2017-03-11 08:00] VITALS: BP 130/76; PULSE 78; RESP 18; O2SAT 98
[2017-03-11] MEDS: Insulin LISPRO 300 Unit/3 mL Inj SUBQ SCH ×2 (08:00→12:22)
[2017-03-11] MEDS: Nystatin 100,000 Unit/Gm 15 Gm Powder TOPICAL SCH (08:27)
[2017-03-11] MEDS ORDERED: INSU100V7 SUBQ ×2 (11:09→11:15)
[2017-03-11] MEDS ORDERED: MELA5TAB14 PO (11:09)
[2017-03-11] MEDS ORDERED: HYDR-4003 PO (11:09)
--- NOTE | 2017-03-11 11:23 | PCM.DC.MED ---
Discharge Summary Date of Service Mar 11, 2017 Dates of Hospitalization Date of Hospital Admission Mar 06, 2017 at 21:21 Date of Discharge: Mar 11, 2017 Providers: Admitting Physician: Eliud Chaney MD Primary Care Physician: Dominique Alcantar MD Attending Physician: Eliud Chaney MD Diagnosis at Time of Discharge Diagnosis at Time of Discharge Acute UTI Subacute back pain and rapid functional decline Type II diabetes Anemia Hyperkalemia Chronic kidney disease Hypovolemia hyponatremia Skin breakdown sacral region Hypertension Hyperlipidemia Hypothyroidism Procedures XRay, CTs & MRIs Caution: Report not yet finalized and possibly incomplete! US ABDOMEN IMPRESSION: 1. Increased hepatic echogenicity noted likely related to fatty infiltration of the liver but other sources of hepatocellular disease cannot be excluded. Recommend clinical correlation. Dictated by: Jared TORRE Interpreted: Farnaz Wilkerson MD on 03/07/2017 at 13:21 X-RAY CHEST IMPRESSION: No acute pulmonary process. Dictated and approved by: Bridget Sandoval M.D. on 03/06/2017 at 17:26 PROCEDURE: MRI LUMBAR SPINE WITH AND WITHOUT CONTRAST ([id number]) FINDINGS: Image quality: There is mild motion artifact. Alignment and curvature: There is minimal anterolisthesis at L5-S1. Marrow: Marrow is of normal overall signal. No acute vertebral body compression fractures. No suspicious marrow enhancement. Spinal cord: Conus medullaris terminates at the L2 level. Visualized spinal cord demonstrates normal signal, without suspicious enhancement. Paraspinous soft tissues: No paravertebral masses or abnormal enhancement. L1-L2: Within normal limits. L2-L3: Minimal broad-based disc bulge and mild facet arthropathy. There is minimal spinal canal narrowing with mild left and minimal right neuroforaminal narrowing. L3-L4: Minimal disc bulge and mild facet arthropathy. No spinal canal narrowing. There is minimal bilateral neuroforaminal narrowing. L4-L5: Small broad-based disc bulge and mild facet arthropathy. There is associated minimal spinal canal narrowing with mild narrowing of the left lateral recess. There is mild bilateral neuroforaminal narrowing. The findings are similar to the prior study. L5-S1: Small broad-based disc bulge and moderate facet arthropathy with small joint effusions. There is mild ligamentum flavum hypertrophy. There is mild spinal canal narrowing with mild narrowing of the lateral recesses. There is moderate left and mild to moderate right right neuroforaminal narrowing. The findings are similar to the prior study. IMPRESSION: 1. Mild multilevel degenerative changes in the lumbar spine which appear similar to the prior MRI study. 2. Multilevel neuroforaminal narrowing including moderate narrowing on the left at L5-S1 as well as mild to moderate narrowing on the right. 3. Mild spinal canal narrowing at L5-S1 as well as minimal narrowing at L2-L3 on L4-5. No high-grade stenoses. Dictated by: Levar Dotson M.D. on 03/10/2017 at 16:04 Approved by: Levar Dotson M.D. 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 Barber. Pt presented to the [facility] by referral from his PCP Dr. Laguerre today secondary to 1 week hx of low BG's. Patient reports his BG levels were between 30-40 yesterday. Patient stated he had placed it call to his primary care physician requesting to do go down on his Lantus from 40 units to 20 units daily. Today patient states that his Lantus was stopped by his PCP. The patient states that his appetite is severely decreased over the past 2-3 weeks to the point where food and drink are not appealing to him. Patient has however remained compliant with his oral anti-glycemic and Lantus over that time period. He attributes his loss of appetite to his severe chronic back pain The patient has also been experiencing general pain for the last 2.5-3 weeks. He reports severe back pain described as both sharp and achy and 8-10/10 with radiation down the medial aspects of lower extremities. Patient describes the pain as "electrical shocks" . An MRI dated 01/23/2017 showed mild multilevel degenerative disc disease, and mild canal stenosis of L4 through S1 secondary to facet and ligamentum flavum hypertrophy. Associates symptoms include chills, shaking, fatigue, dizziness, decreased appetite, vomiting (resolved), and constipation ( attributed to daily oxycodone). Patient is now wheelchair-bound and he states that he is unable to ambulate without assistance. This is a new finding for him. Patient describes pressure ulcers on his buttock. Patient was admitted to [facility] at request of patient's PCP Dr. Laguerre. Per Dr. Laguerre's note patient has been experiencing glycemia over the past 4 days and is severely symptomatic. Patient apparently had not even taken any insulin last night and was still low today. Patient has not been able to get out of bed for 4 days. He has severe leg pain and the PCP is concerned for an underlying overwhelming infection. Apparently his initial presentation was of such concern that 911 was called and patient was given orange juice and P repair with crackers with improvement. His PCP is very concerned over patient lack of being able to get out of bed for 4 days, his new sacral ulcers and, his inability to eat. Patient is to see Dr. Calderon rheumatology in 1 week. Patient is currently status post sacrococcygeal injections for pain with temporary relief. Hospital Course This is an 81-year-old male with history diabetes type II, hypertension, hyperlipidemia, chronic back pain, prostate cancer status post prostatectomy and radiation therapy with bladder neck constriction status post bladder neck surgery with most recent in December 2016 requiring self-catheterization and history of recurrent UTIs who presented to [facility] with 1 week history of hypoglycemia secondary to decreased appetite over the past 2-3 weeks and severe lumbar back pain. Patient was admitted at his PCPs request and for hypoglycemia and urinary tract infection, and hyperkalemia. Hospital day 2. Patient presented with the complaint of a UTI and chronic low back pain with a rapid functional decline. Patient did have OMT during admission and seemed to respond well to that and had increased range of motion. Patient has had physical therapy throughout his stay which has seemed to help increase his endurance, however the patient still has difficulty sitting for long periods of time he will need to be transported to the rehabilitation facility via BLS as he can still only sit for 20 minutes at a time. Patient also had several bouts of hypoglycemia prior to admission and the medication glipizide was discontinued and the patient seemed to have better blood sugar control with Lantus 20 units daily at bedtime. The patient was diagnosed with a UTI and had a full treatment course of Rocephin this seems to have resolved. Patient is being discharged to a rehabilitation facility in stable condition Please see below for full hospital course: Acute complicated UTI, present on admission, active and improving. - He has history of recurrent UTIs contrary to bladder neck stricture and requires self-catheterization. - UA showed: Urine color was straw cloudy, pH 6, large occult blood, large leukocyte esterase, 11-50 RBCs, WBCs packed, few bacteria - Urine culture negative -Continue ceftriaxone 2000 mg every 24 hours - Chest x-ray was negative for acute cardiopulmonary process - We will hold medication methenamine hippurate Subacute back pain and rapid functional decline due to that , present on admission, active and stable. - Continue by mouth oxycodone 5 mg every 4 hours when necessary - Physical therapy following -Continue gabapentin 3 mg twice a day - Morphine 1 mg IV q4h PRN pain - CT lumbar negative for acute compression fracture but consistent with severe diffuse lumbar spinal stenosis. -MRI of the lumbar spine results pending - We will continue gabapentin 3 mg twice a day -Patient responded well to OMT Hypoglycemia, and a known type II diabetic present on admission, improved -Increase Lantus to 20 units daily at bedtime -Continue metformin 1000 milligrams twice a day continue to hold glipizide - Dietitian consult ordered - curtain worker consult ordered -Continue low-dose correctional scale insulin Right upper quadrant tenderness, as seen on physical exam - Abdominal ultrasound revealed increased hepatic ecogenicity. -Pain is less today. -LFTs are normal. -Will continue to monitor. -Recommend outpatient follow up. Anemia, normocytic hypochromic, present on admission, active and stable - Patient has history of chronic anemia Hyperkalemia, present on admission, (resolved) - Patient received single dose of Kayexalate in the ED - Potassium currently within normal limits -Continue to monitor Chronic kidney disease, present on admission, active and stable - Patient records from December 2015 showed creatinine of 1.98 - Patient's creatinine currently is within normal limits -Discontinue IV fluids Hypovolemic Hyponatremia, present on admission, resolved -IV fluids discontinued Sacral skin breakdown, present on admission, active - We will consult wound care Skin rash groin, present on admission, active - Nystatin powder Hypertension - Continue outpatient medication Micardis 40 mg daily Hyperlipidemia -Pharmacy to start comparable dose to patient's home dose of lovastatin 40 mg daily at bedtime Hypothyroidism diagnosed 05/14/2014 - Continue levothyroxine 50 g daily Disposition: Patient is improving. Patient's back pain is less and the patient has been more functional today. Patient was able to sit up in a chair for meals. We will obtain an MRI today to see if there is any further narrowing or spinal stenosis not seen on CT scan. Patient will most likely be discharged to a SNF for rehabilitation. CODE STATUS: Full code PCP: Dominique Laguerre DVT PE prophylaxis: SubQ heparin Q8H Contact: Patient's [phone] Richelle Exam Vital Signs (Last) Date Time Temp Pulse Resp B/P Pulse Ox O2 Delivery O2 Flow Rate FiO2 03/11/17 06:06 36.4 66 16 144/78 97 Room Air Exam Physical Exam: GEN: Patient was awake, alert, responding appropriately to questions HEENT: Pupils equal round and reactive to light, extraocular eye muscles intact , Neck soft supple, trachea midline, nomocephalic/atraumatic CV: +S1/S2, regular rate and rhythm, no murmurs auscultated Respiratory: CTAB, no wheezes, rales, rhonchi GI: +bowel sounds x4, soft, compressible, nontender to palpation EXT: no clubbing, cyanosis, edema Musculoskeletal: increased abduction 45 degrees remains stable, still pain with movement past 45 degrees abduction Neuro: Cranial nerves II-XII grossly intact Psych: mood and affect were appropriate Test 03/06/17 17:00 03/06/17 20:21 03/08/17 07:00 03/10/17 06:58 Hemoglobin A1c 7.2% (4.8-5.6) Magnesium Level 1.8mg/dL (1.6-2.6) Troponin T < 0.010ug/L (0.0-0.011) Hold Vera Top Tube Received (Received) Urine Color Straw (YELLOW) Urine Appearance Cloudy (CLEAR,HAZY) Urine pH 6.0 (5.0-8.0) Urine Specific Agency 1.020 (1.003-1.035) Urine Protein 100mg/dL (NEG,TRACE) Urine Glucose (UA) Negativemg/dL (NEGATIVE) Urine Ketones Negativemg/dL (NEGATIVE) Urine Occult Blood Large (NEGATIVE) Urine Nitrite Negative (NEGATIVE) Urine Bilirubin Negative (NEGATIVE) Urine Urobilinogen Normalmg/dL (NORMAL) Urine Leukocyte Esterase Large (NEGATIVE) Urine RBC 11-50/hpf (0-2) Urine WBC Packed/hpf (0-5) Urine Epithelial Cells Few/hpf (NONE-MOD) Urine Crystals None seen (NONE SEEN) Urine Bacteria Few/hpf (NONE-FEW) Urine Hyaline Casts None/lpf (NONE) Urine Granular Casts None seen (NONE SEEN) Urine Waxy Casts None seen (NONE SEEN) Urine Red Blood Cell Casts None seen (NONE SEEN) Urine White Blood Cell Casts None seen (NONE SEEN) Urine Mucus None seen (None Seen) Urine Trichomonas None seen (NONE SEEN) Urine Yeast None (NONE SEEN) Urine Culture Reflexed Indicated Neutrophils (%) (Auto) 67.5% (40-74) Lymphocytes (%) (Auto) 16.2% (14-46) Monocytes (%) (Auto) 10.7% (4-12) Eosinophils (%) (Auto) 5.0% (0-5) Basophils (%) (Auto) 0.3% (0-3) White Blood Count 7.4th/mm3 (3.8-10.1) Red Blood Count 3.63mil/mm3 (4.40-5.80) Hemoglobin 10.5g/dL (13.8-17.2) Hematocrit 32.9% (41.0-50.0) Mean Corpuscular Volume 90.6fL (81-100) Mean Corpuscular Hemoglobin 28.9pg (27.0-35.0) Mean Corpuscular Hemoglobin Concent 31.9% (32.0-37.0) Red Cell Distribution Width 14.0% (12.3-15.4) Platelet Count 268bil/L (150-400) Total Bilirubin 0.2mg/dL (0.0-1.2) Aspartate Amino Transf (AST/SGOT) 47U/L (0-50) Alanine Aminotransferase (ALT/SGPT) 86U/L (0-44) Alkaline Phosphatase 72U/L (25-160) Total Protein 5.8g/dL (6.4-8.4) Albumin 2.8g/dL (3.4-5.0) Test 03/11/17 05:45 Sodium Level 141mEq/L (134-144) Potassium Level 4.8mEq/L (3.5-5.2) Chloride Level 106mEq/L (97-108) Carbon Dioxide Level 16mmol/L (18-29) Blood Urea Nitrogen 26mg/dL (8-27) Creatinine 1.18mg/dL (0.76-1.27) Estimat Glomerular Filtration Rate 63mL/min (>59) Glucose Level 139mg/dL (60-99) Calcium Level 9.4mg/dL (8.5-10.1) Discharge Medications Discharge Medications Cholecalciferol (Vitamin D3) (Vitamin D3) 2,000 Unit Capsule 2,000 UNIT PO DAILY (Reported) Cranberry Extract (Cranberry) 300 Mg Tablet 300 MG PO DAILY (Reported) Cyanocobalamin (Cyanocobalamin Injection) 1,000 Mcg/1 Ml Vial 1,000 MCG IM Monthly (Reported) Gabapentin (Gabapentin) 300 Mg Capsule 300 MG PO BID (Reported) Insulin Glargine (Lantus U100 Insulin Vial) 100 Unit/Ml Vial 20 UNIT SUBQ HS Prescribed by: HALLE SANTACRUZ DO Levothyroxine (Levothyroxine) 50 Mcg Tablet 50 MCG PO HS (Reported) Metformin (Glucophage) 1,000 Mg Tablet 1,000 MG PO BIDWM (Reported) Methenamine Hippurate (Hiprex) 1 G Tablet 1 G PO BID (Reported) Mineral Oil (Mineral Oil) 473 Ml Oil 473 ML PO Q3DAY (Reported) Telmisartan (Micardis) 40 Mg Tablet 40 MG PO HS (Reported) Ubidecarenone (Co Q-10) 300 Mg Capsule 300 MG PO HS (Reported) As needed Diclofenac Gel (Diclofenac Gel) 100 Gm Tube 1 APPLIC TOPICAL QID PRN PRN ARTHRITIS (Reported) Docusate Sodium (Colace) 100 Mg Capsule 100 MG PO BID PRN PRN For Constipation ( Reported) Hydrocodone-Acetaminophen 5-325 mg (Hydrocodone-Acetaminophen 5-325 mg) 1 Each Tablet 2 TABLET PO Q4 PRN PRN For Moderate Pain Prescribed by: HALLE SANTACRUZ DO Melatonin (Melatonin) 5 Mg Tablet 5 MG PO HS PRN PRN Insomnia Prescribed by: HALLE SANTACRUZ DO oxyCODONE (oxyCODONE) 5 Mg Tablet 5 MG PO Q4H PRN PRN For Pain (Reported) Followup Plan Discharge Diet: Diabetic Discharge Activity: Other (inpatient physical therapy) Follow-up Provider: Dominique Alcantar MD Follow-up with PCP in: 1 week (if an appointment has not been made please call to schedule an appointment) Time spent Greater than 35 minutes copies to: Dominique Alcantar MD, Precious L DO Mar 11, 2017 11:14
[2017-03-11] MEDS: HYDROcodone-APAP 5-325 mg Tablet PO PRN (11:25)
--- NOTE | 2017-03-11 11:25 | PCM.DIMED ---
Discharge Instructions Date of Service Mar 11, 2017 Dates of Hospitalization Mar 06, 2017 at 21:21 Discharge Diagnosis Discharge Diagnosis Acute UTI Subacute back pain and rapid functional decline Type II diabetes Anemia Hyperkalemia Chronic kidney disease Hypovolemia hyponatremia Skin breakdown sacral region Hypertension Hyperlipidemia Hypothyroidism Diet Diabetic Activity Other (inpatient physical therapy) Call your provider Fever or Chills, Shortness of breath, Chest pain, Weakness (unilateral) Patient Instructions Please follow-up with her regular scheduled appointments for your chronic back pain Follow-up Provider: Dominique Alcantar MD Follow-up with PCP in: 1 week (if an appointment has not been made please call to schedule an appointment) Linh Rizo DO Mar 11, 2017 11:24
--- NOTE | 2017-03-11 11:45 | NUR ---
Faxed orders and placed copy on chart, orders faxed to [facility] [phone]. Scheduled BLS via [facility] for 1300. Updated LOCATION DIRECTOR
--- NOTE | 2017-03-11 12:52 | NUR ---
Social Work: Discharge Data & Assessment: SW spoke with Amy at [facility] and she confirmed receipt of the patient's discharge paperwork and the patient will discharge to [facility] today. SW notified patient that patient would discharge to [facility] today. Patient's voiced understanding and was in agreement. Patient will discharge via BLS. SW will continue to follow and assist patient. Plan: Patient will discharge to [facility] via BLS. SW will continue to follow. Pati Parmar, [place], ACM
--- NOTE | 2017-03-11 16:55 | NUR ---
Discharge Patient discharge to [facility] via EMT, Morphine 2 mg IV given prior to discharge. Discharge packet and report given to EMT staff. All personal belongings taken with him. Patient very appreciative of the care rendered by staff.
== END 2017-03-11 13:15 | DRG 690 ==
LOC: SED 15:59 → PCC 21:21 → MOC 03-07 20:43
PROVIDERS: ADMIT Hospitalist; ATTEND Hospitalist
PROC: 7W03X1Z Osteopathic Treatment of Lumbar Region using Fascial Release (ICD-10-PCS; principal; 2017-03-09)
PROC: 7W04X1Z Osteopathic Treatment of Sacrum using Fascial Release (ICD-10-PCS; 2017-03-09)
DX: N39.0 Urinary tract infection, site not specified (principal); E87.5 Hyperkalemia; E11.9 Type 2 diabetes mellitus without complications; E78.5 Hyperlipidemia, unspecified; E11.42 Type 2 diabetes mellitus with diabetic polyneuropathy; L89.152 Pressure ulcer of sacral region, stage 2; E03.9 Hypothyroidism, unspecified; D63.8 Anemia in other chronic diseases classified elsewhere; M19.90 Unspecified osteoarthritis, unspecified site; R33.9 Retention of urine, unspecified; E86.0 Dehydration; N18.9 Chronic kidney disease, unspecified; R21 Rash and other nonspecific skin eruption; M48.06 Spinal stenosis, lumbar region; I12.9 Hypertensive chronic kidney disease with stage 1 through stage 4 chronic kidney disease, or unspecified chronic kidney disease; Z85.46 Personal history of malignant neoplasm of prostate; Z79.4 Long term (current) use of insulin; Z99.3 Dependence on wheelchair